=== PATIENT | female | born 1945 | race Caucasian/White ===

== ENCOUNTER 2019-02-20 11:40 | Inpatient (IN) | payer MEDICARE ==
[2019-02-20] MEDS ORDERED: MORPHINE SULFATE 2 MG/ML SYRINGE IVP STA (12:06)
--- NOTE | 2019-02-20 12:11 | ED ---
Lower Extremity Injury HPI <Dominick Fink - Last Filed: 02/20/19 12:31> - General Source: patient Mode of arrival: wheelchair Limitations: physical limitation <Katherine Groves - Last Filed: 02/20/19 15:06> - General Chief Complaint: Extremity Injury, Lower Stated Complaint: fall/hip pain Time Seen by Provider: 02/20/19 11:56 - History of Present Illness Initial Comments: 73-year-old female denies past medical history presents today for chief complaint of right hip pain. Patient fell while playing pickle ball at the [facility] around 945 this morning. Patient states she was just evaluated [facility] where she was diagnosed with hip fracture. She states they have imaging studies. Patient states she was sent over for admission, and should be scheduled for surgery tomorrow. I contacted [facility]. Patient was possibly a direct admission. Patient had actually come to the emergency department. Patient was only supposed to go to registration for direct admission. Patient admits to pain in the right hip denies any other area of pain or injury denies head injury or loss of consciousness. I will place initial medical evaluation for preoperative clearance for Dr. Leiva as instructed by SUSI Wood. (Katherine Groves) - Related Data Home Medications Medication Instructions Recorded Confirmed No Known Home Medications 02/20/19 02/20/19 Allergies Allergy/AdvReac Type Severity Reaction Status Date / Time adhesive tape Allergy torn skin Verified 02/20/19 11:56 codeine AdvReac Nausea & Verified 02/20/19 11:56 Vomiting Review of Systems ROS Other: All systems not noted in ROS Statement are negative. <AleksDominick - Last Filed: 02/20/19 12:31> ROS Other: All systems not noted in ROS Statement are negative. <Katherine Groves - Last Filed: 02/20/19 15:06> ROS Statement: Those systems with pertinent positive or pertinent negative responses have been documented in the HPI. Past Medical History Past Medical History: No Reported History Additional Past Medical History / Comment(s): FABBY CATARACTS History of Any Multi-Drug Resistant Organisms: None Reported Past Surgical History: Breast Surgery Additional Past Surgical History / Comment(s): BREAST REDUCTION, "FACE LIFT", rt cataract Past Anesthesia/Blood Transfusion Reactions: Postoperative Nausea & Vomiting (PONV) Past Psychological History: No Psychological Hx Reported Smoking Status: Never smoker Past Alcohol Use History: None Reported Past Drug Use History: None Reported - Past Family History Mother Family Medical History: No Reported History Father Family Medical History: No Reported History Additional Family Medical History / Comment(s): Father was healthy. <Katherine Groves - Last Filed: 02/20/19 15:06> General Exam Limitations: physical limitation <Katherine Groves - Last Filed: 02/20/19 15:06> - General Exam Comments Initial Comments: General: The patient is awake and alert, in no distress, and does not appear acutely ill. Eye: Pupils are equal, round and reactive to light, extra-ocular movements are intact. No nystagmus. There is normal conjunctiva bilaterally. No signs of icterus. Ears, nose, mouth and throat: There are moist mucous membranes and no oral lesions. No midline tenderness to patient of the neck. Patient able to fully range at the C-spine. Neck: The neck is supple, there is no tenderness or JVD. Cardiovascular: There is a regular rate and rhythm. No murmur, rub or gallop is appreciated. Respiratory: Lungs are clear to auscultation, respirations are non-labored, breath sounds are equal. No wheezes, stridor, rales, or rhonchi. Gastrointestinal: Soft, non-distended, non-tender abdomen without masses or organomegaly noted. There is no rebound or guarding present. Musculoskeletal: Patient is not tender to percussion of the upper extremity aashish nts. Normal ROM, no tenderness at the knee bilaterally hips and ankles bilaterally patient's unable to range at the right hip. There is shortening noted. Strength 5/5 distal to knees b/l. Sensation intact of the LE equal in comparison b/l. DP pulses equal bilaterally 2+. Neurological: A&O x 3. CN II-XII intact, There are no obvious motor or sensory deficits. Coordination appears grossly intact. Speech is normal. Skin: Skin is warm and dry and no rashes or lesions are noted. Psychiatric: Cooperative, appropriate mood & affect, normal judgment. (YaneliKatherine Viveros) Course <Dominick Fink - Last Filed: 02/20/19 12:31> Vital Signs 02/20/19 11:46 Temperature 98.2 F Pulse Rate 76 Respiratory 18 Rate Blood Pressure 121/51 O2 Sat by Pulse 98 Oximetry - Reevaluation(s) Reevaluation #1: 02/20/19 12:31 PA supervision: I proceeded [id number] evaluation the patient she did present from her orthopedic surgeon office for complaints of right hip pain she does have a right hip fracture. She will be admitted to Dr. Leiva's service I do agree with the assessment and plan. 02/20/19 12:31 (Dominick Fink) Medical Decision Making - Lab Data Result diagrams: 02/20/19 12:12 02/20/19 12:12 <Katherine Groves - Last Filed: 02/20/19 15:06> - Medical Decision Making 73-year-old feel presented for direct admission from right hip fracture. Patient actually presents emergency department, we are unaware of this until [facility] and spoke with physician library assistant [place]. She was evaluated the emergency department. Patient neurovascularly intact. Imaging studies were not repeated. Pt was transferred to the floor in stable condition. Initial medical studies initiated for medical clearance. Medicine on consult. (Katherine Groves) - Lab Data Lab Results 02/20/19 02/20/19 02/20/19 Range/Units 12:12 12:12 12:12 WBC 10.9 H (3.8-10.6) k/uL RBC 4.87 (3.80-5.40) m/uL Hgb 14.4 (11.4-16.0) gm/dL Hct 44.0 (34.0-46.0) % MCV 90.3 (80.0-100.0) fL MCH 29.5 (25.0-35.0) pg MCHC 32.6 (31.0-37.0) g/dL RDW 13.7 (11.5-15.5) % Plt Count 259 (150-450) k/uL Neutrophils % 84 % Lymphocytes % 10 % Monocytes % 4 % Eosinophils % 1 % Basophils % 0 % Neutrophils # 9.1 H (1.3-7.7) k/uL Lymphocytes # 1.1 (1.0-4.8) k/uL Monocytes # 0.5 (0-1.0) k/uL Eosinophils # 0.2 (0-0.7) k/uL Basophils # 0.0 (0-0.2) k/uL PT 9.6 (9.0-12.0) sec INR 0.9 (<1.2) APTT 20.4 L (22.0-30.0) sec Sodium 139 (137-145) mmol/L Potassium 4.3 (3.5-5.1) mmol/L Chloride 106 (98-107) mmol/L Carbon Dioxide 25 (22-30) mmol/L Anion Gap 8 mmol/L BUN 16 (7-17) mg/dL Creatinine 0.62 (0.52-1.04) mg/dL Est GFR (CKD-EPI)AfAm >90 (>60 ml/min/1.73 sqM) Est GFR (CKD-EPI)NonAf 89 (>60 ml/min/1.73 sqM) Glucose 91 (74-99) mg/dL Calcium 10.0 (8.4-10.2) mg/dL Total Bilirubin 1.2 (0.2-1.3) mg/dL AST 29 (14-36) U/L ALT 31 (9-52) U/L Alkaline Phosphatase 74 (38-126) U/L NT-Pro-B Natriuret Pep pg/mL Total Protein 7.4 (6.3-8.2) g/dL Albumin 4.5 (3.5-5.0) g/dL 02/20/19 Range/Units 12:12 WBC (3.8-10.6) k/uL RBC (3.80-5.40) m/uL Hgb (11.4-16.0) gm/dL Hct (34.0-46.0) % MCV (80.0-100.0) fL MCH (25.0-35.0) pg MCHC (31.0-37.0) g/dL RDW (11.5-15.5) % Plt Count (150-450) k/uL Neutrophils % % Lymphocytes % % Monocytes % % Eosinophils % % Basophils % % Neutrophils # (1.3-7.7) k/uL Lymphocytes # (1.0-4.8) k/uL Monocytes # (0-1.0) k/uL Eosinophils # (0-0.7) k/uL Basophils # (0-0.2) k/uL PT (9.0-12.0) sec INR (<1.2) APTT (22.0-30.0) sec Sodium (137-145) mmol/L Potassium (3.5-5.1) mmol/L Chloride (98-107) mmol/L Carbon Dioxide (22-30) mmol/L Anion Gap mmol/L BUN (7-17) mg/dL Creatinine (0.52-1.04) mg/dL Est GFR (CKD-EPI)AfAm (>60 ml/min/1.73 sqM) Est GFR (CKD-EPI)NonAf (>60 ml/min/1.73 sqM) Glucose (74-99) mg/dL Calcium (8.4-10.2) mg/dL Total Bilirubin (0.2-1.3) mg/dL AST (14-36) U/L ALT (9-52) U/L Alkaline Phosphatase (38-126) U/L NT-Pro-B Natriuret Pep 203 pg/mL Total Protein (6.3-8.2) g/dL Albumin (3.5-5.0) g/dL Disposition <Dominick Fink - Last Filed: 02/20/19 12:31> Is patient prescribed a controlled substance at d/c from ED?: No Time of Disposition: 12:16 Decision to Admit Reason: Admit from EC Decision Date: 02/20/19 Decision Time: 12:16 <Katherine Groves - Last Filed: 02/20/19 15:06> Clinical Impression: Fracture of right hip Disposition: ADMITTED IP TO THIS [facility] Condition: Stable
[2019-02-20] MEDS ORDERED: NALOXONE 0.4 MG/ML 1 ML VIAL IV PRN (12:13)
[2019-02-20 12:31] LABS: Basophils % (A) 0 %; Eosinophils # (A) 0.2 k/uL (0-0.7); Eosinophils % (A) 1 %; HGB 14.4 gm/dL (11.4-16.0); Lymphocytes # (A) 1.1 k/uL (1.0-4.8); Lymphocytes % (A) 10 %; MCH 29.5 pg (25.0-35.0); MCHC 32.6 g/dL (31.0-37.0); MCV 90.3 fL (80.0-100.0); Mean Platelet Volume 6.8; Monocytes # (A) 0.5 k/uL (0-1.0); Monocytes % (A) 4 %; Neutrophils # (A) 9.1 k/uL (1.3-7.7); Neutrophils % (A) 84 %; Platelet Count 259 k/uL (150-450); RBC 4.87 m/uL (3.80-5.40); RDW 13.7 % (11.5-15.5); WBC 10.9 k/uL (3.8-10.6)
[2019-02-20 12:37] LABS: ALT 31 U/L (9-52); AST 29 U/L (14-36); Albumin 4.5 g/dL (3.5-5.0); Alkaline Phosphatase 74 U/L (38-126); Anion Gap 8 mmol/L; Blood Urea Nitrogen 16 mg/dL (7-17); Carbon Dioxide 25 mmol/L (22-30); Chloride 106 mmol/L (98-107); Glucose 91 mg/dL (74-99); Potassium 4.3 mmol/L (3.5-5.1); Sodium 139 mmol/L (137-145); Total Bilirubin 1.2 mg/dL (0.2-1.3); Total Protein 7.4 g/dL (6.3-8.2)
[2019-02-20 12:42] LABS: INR 0.9 (<1.2); Prothrombin Time 9.6 sec (9.0-12.0)
[2019-02-20 12:46] LABS: Partial Thromboplastin Time 20.4 sec (22.0-30.0)
[2019-02-20] MEDS ORDERED: MAGNESIUM HYDROXIDE 2,400 MG/10 ML CUP PO PRN (12:55)
[2019-02-20] MEDS ORDERED: HYDROcodone/APAP 10-325MG 1 EACH TAB PO PRN ×2 (12:55)
[2019-02-20] MEDS ORDERED: HYDROcodone/APAP 7.5-325MG 1 EACH TAB PO PRN ×2 (12:55)
[2019-02-20] MEDS ORDERED: HYDROcodone/APAP 5-325MG 1 EACH TAB PO PRN (12:55)
[2019-02-20] MEDS ORDERED: ACETAMINOPHEN TAB 325 MG TAB PO PRN (12:55)
[2019-02-20] MEDS ORDERED: traMADol 50 MG TAB PO PRN (12:55)
[2019-02-20] MEDS ORDERED: DIAZEPAM 5 MG TAB PO PRN (12:55)
[2019-02-20] MEDS ORDERED: HYDROmorphone 0.5 MG/0.5 ML SYRINGE IVP PRN ×3 (12:55)
--- NOTE | 2019-02-20 13:14 | P.HPOR ---
History of Present Illness H&P Date: 02/20/19 Chief Complaint: Right Hip Fracture Patient is a 73 year old female. Radha Butterfield" presented to our office for evaluation of her right hip pain. She sustained injury to her hip when she fell while playing pickle ball today (02/20/19). Patient is well known to Dr. Leiva and her brought her straight to the office following the injury as she has been unable to bear any weight on the right leg. She is brought into the office by wheel chair today. Patient states on her intake form that pain level is at 9/10. She continues to have pain and weakness. She describes her pain as sharp. Patient states her symptoms are worse with walking, running, lifting, twisting, bending, stairs, exercise, squatting and kneeling. Other activities that make symptoms worse include: cannot move leg. Patient denies being off work due to her symptoms. Review of Systems All systems: negative Constitutional: Denies chills, Denies fever Eyes: denies blurred vision, denies pain Ears, nose, mouth and throat: Denies headache, Denies sore throat Cardiovascular: Denies chest pain, Denies shortness of breath Respiratory: Denies cough Gastrointestinal: Denies abdominal pain, Denies diarrhea, Denies nausea, Denies vomiting Genitourinary: Denies dysuria, Denies hematuria Musculoskeletal: Denies myalgias Integumentary: Denies pruritus, Denies rash Neurological: Denies numbness, Denies weakness Psychiatric: Denies anxiety, Denies depression Endocrine: Denies fatigue, Denies weight change Past Medical History Past Medical History: Hyperlipidemia, Osteoarthritis (OA) Additional Past Medical History / Comment(s): Arthritis in fingers, L leg ACL te ar-wears a brace, diverticulosis, benign colon polyp. History of Any Multi-Drug Resistant Organisms: None Reported Past Surgical History: Breast Surgery, Orthopedic Surgery Additional Past Surgical History / Comment(s): BREAST REDUCTION, "FACE LIFT", bilateral cataract removals with lens implants, ACL repair R leg, colonoscopy with benign polypectomy. Past Anesthesia/Blood Transfusion Reactions: Postoperative Nausea & Vomiting (PONV) Additional Past Anesthesia/Blood Transfusion Reaction / Comment(s): Pt received blood after delivery. Past Psychological History: No Psychological Hx Reported Additional Psychological History / Comment(s): Pt resides with her spouse. She is independent. Smoking Status: Never smoker Past Alcohol Use History: None Reported Past Drug Use History: None Reported - Past Family History Mother Family Medical History: No Reported History Additional Family Medical History / Comment(s): Osteoporosis. Father Family Medical History: No Reported History Additional Family Medical History / Comment(s): Father was healthy. Medications and Allergies Home Medications Medication Instructions Recorded Confirmed Type No Known Home Medications 02/20/19 02/20/19 History Allergies Allergy/AdvReac Type Severity Reaction Status Date / Time adhesive tape Allergy torn skin Verified 02/20/19 11:56 codeine AdvReac Nausea & Verified 02/20/19 11:56 Vomiting Physical Examination General Exam: Constitutional: Patient is adequately groomed with no evidence of malnutrition. Skin: There are no rashes, ulcerations or lesions in the regions examined. Mental Status: Patient is oriented to time, place and person. Mood and affect are appropriate. Respiratory: No labored effort. No accessory muscle use. HEENT: Normal cephalic atraumatic. Extraocular movements are intact. On exam, skin is intact. Patient has hip pain with minimal range of motion. ROM of hip not tested due to fracture. Neurovascular status is intact. Circulatory status is intact.Calf is soft an nontender Results X-rays of the right hip and pelvis taken in the office show a valgus impacted femoral neck fracture. No osseous lesions. - Labs Labs: Abnormal Lab Results - Last 24 Hours (Table) 02/20/19 02/20/19 Range/Units 12:12 12:12 WBC 10.9 H (3.8-10.6) k/uL Neutrophils # 9.1 H (1.3-7.7) k/uL APTT 20.4 L (22.0-30.0) sec H & H 02/20/19 Range/Units 12:12 Hgb 14.4 (11.4-16.0) gm/dL Hct 44.0 (34.0-46.0) % Coagulation 02/20/19 Range/Units 12:12 INR 0.9 (<1.2) Result Diagrams: 02/20/19 12:12 02/20/19 12:12 Assessment and Plan (1) Fracture of right hip Narrative/Plan: Patient is being directed admitted from the office today. She is not to bear any weight on the right hip. We will plan on doing surgery tomorrow afternoon including percutaneous fixation of right hip fracture. She will be NPO after midnight. Medical consults for clearance ordered. Procedure and consent have been ordered. Current Visit: Yes Status: Acute Priority: Medium Code(s): S72.001A - F RACTURE OF UNSP PART OF NECK OF RIGHT FEMUR, INIT SNOMED Code(s): 814623054 Time with Patient: Less than 30
[2019-02-20] MEDS: MORPHINE SULFATE 2 MG/ML SYRINGE IV PRN ×2 (15:38→20:41)
[2019-02-20] MEDS: SODIUM CHLORIDE 0.9% 1,000 ML IV SCH (15:38)
--- NOTE | 2019-02-20 16:15 | XR ---
EXAMINATION TYPE: XR chest 1V DATE OF EXAM: 02/20/2019 COMPARISON: NONE HISTORY: Preop TECHNIQUE: Single frontal view of the chest is obtained. FINDINGS: No pneumothorax.. Diffuse osteopenia. No overt failure. There is subsegmental consolidatio n at the right lung base with small effusion. IMPRESSION: Right subsegmental basilar infiltrate with tiny effusion.
[2019-02-20] MEDS: SENNOSIDES-DOCUSATE SODIUM 1 EACH TAB PO SCH (20:22)
[2019-02-20] MEDS: LACTATED RINGERS 1,000 ML IV SCH (20:42)
[2019-02-20 21:42] LABS: Hemoglobin A1C 5.4 % (4.0-6.0)
--- NOTE | 2019-02-20 21:43 | P.CONS ---
History of Present Illness - Reason for Consult Consult date: 02/20/19 Requesting physician: Doug Leiva - Chief Complaint Right hip fracture requiring surgical intervention - History of Present Illness Is a pleasant 73-year-old lady patient of Dr. Pelletier. She has underlying history of osteoarthritis hyperlipidemia, DJD diverticulosis, admitted to the hospital after initial evaluation by Dr. Leiva at this office, patient sustained a fall 1 and playing pickle ball 02/20/2019, unable to bear weight on the right leg, pain is 9 out of 10, aggravated by movement. X-rays in the office shows valgus impacted femoral neck fracture right hip, Patient cannot bear weight, patient denies any chest pain shortness of breath palpitations, no fever no chills, no new rashes, no new medications from other physicians, no nausea vomiting diarrhea. Consult were made from orthopedics with plans for surgical intervention to include percutaneous fixation of the right hip, on 02/21/2019. she denies any prior history of CHF, no prior ID, no prior CVA history, creatinine of 0.6, no diabetes. Clearance performed today with an RCRI, score of 0, Mace surgical risk of 1-5%, ASA anesthesia risk class I controlled hypertension, EKG will be ordered, INR is 0.9, preop evaluaion with a BNP. , ekg reviewed, nsr no pathological q waves. Review of Systems Constitutional: Reports as per HPI, Denies anorexia, Denies chills, Denies chronic headaches, Denies chronic pain, Denies daytime sleepiness, Denies fatigue, Denies fever, Denies lethargy, Denies malaise, Denies night sweats, Denies poor appetite, Denies sweats, Denies weakness, Denies weight gain, Denies weight loss Ears, nose, mouth and throat: Reports as per HPI, Denies ant. neck pain, Denies bleeding gums, Denies dental pain, Denies dysphagia, Denies epistaxis, Denies headache, Denies hoarseness, Denies mouth pain, Denies nasal congestion, Denies nasal discharge, Denies neck fullness/pressure, Denies neck lump, Denies nose pain, Denies odynophagia, Denies post-nasal drip, Denies sinus pain, Denies sinus pressure, Denies swelling in mouth, Denies swelling in throat, Denies sore throat, Denies vertigo, Denies voice changes Cardiovascular: Reports as per HPI, Denies chest pain, Denies claudication, Denies decreased exercise tolerance, Denies dyspnea on exertion, Denies edema, Denies high blood pressure, Denies irregular heart beat, Denies leg edema, Denies lightheadedness, Denies orthopnea, Denies palpitations, Denies paroxysmal nocturnal dyspnea, Denies phlebitis, Denies rapid heart beat, Denies shortness of breath, Denies syncope Respiratory: Reports as per HPI, Denies congestion, Denies cough, Denies cough with sputum, Denies dyspnea, Denies excessive sputum, Denies hemoptysis, Denies home oxygen, Denies pain, Denies pain on inspiration, Denies pleurisy, Denies respiratory infections, Denies sleep apnea, Denies snoring, Denies wheezing Gastrointestinal: Reports as per HPI, Denies abdominal pain, Denies belching, Denies bloating, Denies BRBPR, Denies change in bowel habits, Denies coffee ground emesis, Denies constipation, Denies diarrhea, Denies dyspepsia, Denies early satiety, Denies excessive gas, Denies heartburn, Denies hematemesis, Denies hematochezia, Denies indigestion, Denies jaundice, Denies lactose intolerance, Denies loss of appetite, Denies melena, Denies nausea, Denies vomiting Genitourinary: Reports as per HPI Menstruation: Reports as per HPI, Reports postmenopausal Musculoskeletal: Reports as per HPI, Reports gait dysfunction, Reports limitation of motion, Denies arm numbness/tingling, Denies atrophy, Denies fractures, Denies frequent falls, Denies hot joints, Denies leg numbness/tingling, Denies loss of height, Denies low back pain, Denies morning stiffness, Denies muscle cramps, Denies muscle weakness, Denies myalgias, Denies neck pain, Denies neck stiffness, Denies prior amputations, Denies redness of joints, Denies shooting arm pain, Denies shooting leg pain Integumentary: Denies as per HPI, Denies acne, Denies boils, Denies brittle nails, Denies change in hair/nails, Denies color changes, Denies darkening of skin, Denies depigmentation, Denies dryness, Denies foot/leg ulcers, Denies gr owths, Denies hirsutism, Denies lesions, Denies onychomycosis, Denies pruritus, Denies rash, Denies sores, Denies striae, Denies unusual bruising, Denies wounds Neurological: Reports as per HPI, Denies aphasia, Denies ataxia, Denies balance difficulties, Denies burning pain, Denies change in mentation, Denies change in smell/taste, Denies change in speech, Denies confusion, Denies convulsions, Denies double vision, Denies gait dysfunction, Denies head injury, Denies head aches, Denies hearing difficulties, Denies lack of coordination, Denies loss of vision, Denies memory loss, Denies migraines, Denies motor disturbance, Denies numbness, Denies paralysis, Denies paresthesias, Denies seizures, Denies sensory deficit, Denies spasticity, Denies syncope, Denies tic, Denies tingling, Denies transient paralysis, Denies tremors, Denies vertigo, Denies weakness, Denies vis ual changes Psychiatric: Reports as per HPI, Reports sleep disturbances, Denies anhedonia, Denies anxiety, Denies anxiety attacks, Denies change in appetite, Denies change in libido, Denies change in sleep habits, Denies confusion, Denies depression, Denies difficulty concentrating, Denies disorientation, Denies hallucinations, Denies hopelessness, Denies hypersomnia, Denies insomnia, Denies irritability, Denies memory loss, Denies mood swings, Denies paranoia, Denies sa dness/tearfulness, Denies suicidal ideation Endocrine: Reports as per HPI Hematologic/Lymphatic: Reports as per HPI Allergic/Immunologic: Reports as per HPI Past Medical History Past Medical History: Hyperlipidemia, Osteoarthritis (OA) Additional Past Medical History / Comment(s): Arthritis in fingers, L leg ACL tear-wears a brace, diverticulosis, benign colon polyp. History of Any Multi-Drug Resistant Organisms: None Reported Past Surgical History: Breast Surgery, Orthopedic Surgery Additional Past Surgical History / Comment(s): BREAST REDUCTION, "FACE LIFT", bilateral cataract removals with lens implants, ACL repair R leg, colonoscopy with benign polypectomy. Past Anesthesia/Blood Transfusion Reactions: Postoperative Nausea & Vomiting (PONV) Additional Past Anesthesia/Blood Transfusion Reaction / Comm: Pt received blood after delivery. Past Psychological History: No Psychological Hx Reported Additional Psychological History / Comment(s): Pt resides with her spouse. She is independent. Smoking Status: Never smoker Past Alcohol Use History: None Reported Past Drug Use History: None Reported - Past Family History Mother Family Medical History: No Reported History Additional Family Medical History / Comment(s): Osteoporosis. Father Family Medical History: No Reported History Additional Family Medical History / Comment(s): Father was healthy. Medications and Allergies Home Medications Medication Instructions Recorded Confirmed Type No Known Home Medications 02/20/19 02/20/19 History Allergies Allergy/AdvReac Type Severity Reaction Status Date / Time adhesive tape Allergy torn skin Verified 02/20/19 11:56 codeine AdvReac Nausea & Verified 02/20/19 11:56 Vomiting Physical Exam Vitals: Vital Signs Temp Pulse Resp BP Pulse Ox 02/20/19 11:46 98.2 F 76 18 121/51 98 Intake and Output 02/19/19 02/20/19 02/20/19 22:59 06:59 14:59 Other: Weight 50.802 kg - Constitutional General appearance: cooperative, no acute distress - EENT Eyes: anicteric sclerae, PERRLA, dentition normal, normal appearance ENT: hearing grossly normal, NA/AT, normal oropharynx - Neck Neck: normal ROM - Respiratory Respiratory: bilateral: CTA, negative: diminished, dullness, rales, rhonchi, whe ezing, prolonged expiration - Cardiovascular Rhythm: regular Heart sounds: normal: S1, S2 Abnormal Heart Sounds: no systolic murmur, no diastolic murmur, no rub, no S3 Gallop, no S4 Gallop, no click, no other - Gastrointestinal General gastrointestinal: normal bowel sounds, soft - Integumentary Integumentary: normal, normal turgor - Neurologic Neurologic: CNII-XII intact - Musculoskeletal Musculoskeletal: strength equal bilaterally - Psychiatric Psychiatric: A&O x's 3, appropriate affect, intact judgment & insight Results CBC & Chem 7: 02/20/19 12:12 02/20/19 12:12 Labs: Abnormal Lab Results - Last 24 Hours (Table) 02/20/19 02/20/19 Range/Units 12:12 12:12 WBC 10.9 H (3.8-10.6) k/uL Neutrophils # 9.1 H (1.3-7.7) k/uL APTT 20.4 L (22.0-30.0) sec Laboratory Results WBC 10.9 k/uL (3.8-10.6) H 02/20/19 12:12 RBC 4.87 m/uL (3.80-5.40) 02/20/19 12:12 Hgb 14.4 gm/dL (11.4-16.0) 02/20/19 12:12 Hct 44.0 % (34.0-46.0) 02/20/19 12:12 MCV 90.3 fL (80.0-100.0) 02/20/19 12:12 MCH 29.5 pg (25.0-35.0) 02/20/19 12:12 MCHC 32.6 g/dL (31.0-37.0) 02/20/19 12:12 RDW 13.7 % (11.5-15.5) 02/20/19 12:12 Plt Count 259 k/uL (150-450) 02/20/19 12:12 Neutrophils % 84 % 02/20/19 12:12 Lymphocytes % 10 % 02/20/19 12:12 Monocytes % 4 % 02/20/19 12:12 Eosinophils % 1 % 02/20/19 12:12 Basophils % 0 % 02/20/19 12:12 Neutrophils # 9.1 k/uL (1.3-7.7) H 02/20/19 12:12 Lymphocytes # 1.1 k/uL (1.0-4.8) 02/20/19 12:12 Monocytes # 0.5 k/uL (0-1.0) 02/20/19 12:12 Eosinophils # 0.2 k/uL (0-0.7) 02/20/19 12:12 Basophils # 0.0 k/uL (0-0.2) 02/20/19 12:12 PT 9.6 sec (9.0-12.0) 02/20/19 12:12 INR 0.9 (<1.2) 02/20/19 12:12 APTT 20.4 sec (22.0-30.0) L 02/20/19 12:12 Sodium 139 mmol/L (137-145) 02/20/19 12:12 Potassium 4.3 mmol/L (3.5-5.1) 02/20/19 12:12 Chloride 106 mmol/L (98-107) 02/20/19 12:12 Carbon Dioxide 25 mmol/L (22-30) 02/20/19 12:12 Anion Gap 8 mmol/L 02/20/19 12:12 BUN 16 mg/dL (7-17) 02/20/19 12:12 Creatinine 0.62 mg/dL (0.52-1.04) 02/20/19 12:12 Est GFR (CKD-EPI)AfAm >90 (>60 ml/min/1.73 sqM) 02/20/19 12:12 Est GFR (CKD-EPI)NonAf 89 (>60 ml/min/1.73 sqM) 02/20/19 12:12 Glucose 91 mg/dL (74-99) 02/20/19 12:12 Calcium 10.0 mg/dL (8.4-10.2) 02/20/19 12:12 Total Bilirubin 1.2 mg/dL (0.2-1.3) 02/20/19 12:12 AST 29 U/L (14-36) 02/20/19 12:12 ALT 31 U/L (9-52) 02/20/19 12:12 Alkaline Phosphatase 74 U/L (38-126) 02/20/19 12:12 Total Protein 7.4 g/dL (6.3-8.2) 02/20/19 12:12 Albumin 4.5 g/dL (3.5-5.0) 02/20/19 12:12 Assessment and Plan Plan: 1. Traumatic fracture involving the right femur, requiring IM nailing by Dr. Leiva on February 21 2019, RCRI score of 0, ASA anesthesia class 1, Mace risk score of 1-5%, preoperatively cleared based on the current examination, patient would need an EKG, BNP baseline, obtain urinalysis secondary leukocytosis, surgery is anticipated 02/21/2019 weightbearing status per surgery, start on incentive spirometry, GI prophylaxis and DVT prophylaxis 2. Chronic generalized arthritis him a patient's physically active prior to admission, 3. DVT prophylaxis would be aspirin twice a day post surgery 3. Hyperlipidemia not on statin 4. Age-related osteoporosis with current pathological fracture, patient is not on any medication prior to admission, we'll going to start her on vitamin D, bone density needs to be evaluated post discharge by PCP if not done 5. GI prophylaxis Pepcid 6. Leukocytosis possibly related to phase reactant, monitor for urinary symptomatology, urinalysis obtained with reflex Thank you Dr. Leiva in allowing us to precipitate the care of your patient. We'll going to follow her with you Graciela this current hospital stay, recommendations to her treatment will be made based on her clinical progress
[2019-02-20] MEDS: TEMAZEPAM 15 MG CAP PO PRN (22:14)
[2019-02-21] MEDS: MORPHINE SULFATE 2 MG/ML SYRINGE IV PRN ×3 (03:57→18:25)
[2019-02-21 04:13] LABS: Appearance,Urine Clear (Clear); Bilirubin,Urine Negative (Negative); Blood,Urine Negative (Negative); Color,Urine Yellow; Glucose,Urine (UA) Negative (Negative); Ketones,Urine 2+ (Negative); Leukocyte Esterase,Urine Moderate (Negative); Mucus,Urine Occasional /hpf; Nitrite,Urine Negative (Negative); Protein,Urine Trace (Negative); RBC,Urine 1 /hpf (0-5); Specific Gravity,Urine 1.025 (1.001-1.035); Squamous Epithelial Cell,Urine 1 /hpf (0-4); Urobilinogen,Urine <2.0 mg/dL (<2.0)
[2019-02-21] MEDS: ONDANSETRON 4 MG/2 ML VIAL IVP PRN (07:45)
[2019-02-21 08:09] LABS: Basophils % (A) 0 %; Eosinophils # (A) 0.1 k/uL (0-0.7); Eosinophils % (A) 1 %; HCT 39.2 % (34.0-46.0); HGB 12.6 gm/dL (11.4-16.0); Lymphocytes # (A) 1.2 k/uL (1.0-4.8); Lymphocytes % (A) 14 %; MCH 29.3 pg (25.0-35.0); MCHC 32.1 g/dL (31.0-37.0); MCV 91.4 fL (80.0-100.0); Mean Platelet Volume 6.7; Monocytes # (A) 0.6 k/uL (0-1.0); Monocytes % (A) 7 %; Neutrophils # (A) 6.2 k/uL (1.3-7.7); Neutrophils % (A) 76 %; Platelet Count 214 k/uL (150-450); RBC 4.29 m/uL (3.80-5.40); RDW 13.9 % (11.5-15.5); WBC 8.2 k/uL (3.8-10.6)
[2019-02-21 08:23] LABS: Anion Gap 7 mmol/L; Blood Urea Nitrogen 13 mg/dL (7-17); Calcium 9.2 mg/dL (8.4-10.2); Carbon Dioxide 23 mmol/L (22-30); Chloride 107 mmol/L (98-107); Glucose 97 mg/dL (74-99); Potassium 4.2 mmol/L (3.5-5.1); Sodium 137 mmol/L (137-145)
[2019-02-21] MEDS ORDERED: ceFAZolin (PMX-bag) 2,000 MG in DEXTROSE/WATER 1 50ML.BAG IVPB SCH (11:30)
[2019-02-21] MEDS ORDERED: ceFAZolin IN SWFI 2 GM/20 ML SYRINGE IVP SCH (11:30)
[2019-02-21] MEDS ORDERED: IV FLUID CONTINUATION 1,000 ML IV ONE (14:53)
--- NOTE | 2019-02-21 15:29 | P.PN ---
Subjective Progress Note Date: 02/21/19 Is a pleasant 73-year-old lady patient of Dr. Pelletier. She has underlying history of osteoarthritis hyperlipidemia, DJD diverticulosis, admitted to the hospital after initial evaluation by Dr. Leiva at this office, patient sustained a fall 1 and playing pickle ball 02/20/2019, unable to bear weight on the right leg, pain is 9 out of 10, aggravated by movement. X-rays in the office shows valgus impacted femoral neck fracture right hip, Patient cannot bear weight, patient denies any chest pain shortness of breath palpitations, no fever no chills, no new rashes, no new medications from other physicians, no nausea vomiting diarrhea. Consult were made from orthopedics with plans for surgical interven tion to include percutaneous fixation of the right hip, on 02/21/2019. she denies any prior history of CHF, no prior MD, no prior CVA history, creatinine of 0.6, no diabetes. Clearance performed today with an RCRI, score of 0, Mace surgical risk of 1-5%, ASA anesthesia risk class I controlled hype rtension, EKG will be ordered, INR is 0.9, preop evaluaion with a BNP. , ekg reviewed, nsr no pathological q waves. 02/21: Chest x-ray reveals right subsegmental basilar infiltrate with tiny effusions. Patient is scheduled for percutaneous fixation of the right hip fracture this afternoon. Patient is cleared for medicine for surgical intervention. She denies having any chest pain, shortness of breath. No nausea or vomiting. She has been afebrile, blood pressure 123/59, pulse ox 99% on room air, pulse rate 75. White count is normal at 8.2, hemoglobin 12.6, creatinine 0.55. TSH 1.4-0. Urinalysis showed moderate leukoesterase, nitrate negative, WBC 16. Review Of Systems: Constitutional: No fever, no chills, no night sweats. No weight change. No weakness, fatigue or lethargy. No daytime sleepiness. EENT: No headache. No blurred vision or double vision, no loss of vision. No loss of Hearing, no ringing in the ears, no dizziness. No nasal drainage or congestion. No epistaxis. No sore throat. Lungs: No shortness of breath, cough, no sputum production. No wheezing. Cardiovascular: No chest pain, no lower extremity edema. No palpitations. No paroxysmal nocturnal dyspnea. No orthopnea. No lightheadedness or dizziness. No syncopal episodes. Abdominal: No abdominal pain. No nausea, vomiting. No diarrhea. No constipation. No bloody or tarry stools. Genitourinary: No dysuria, increased frequency, urgency. No urinary retention. Musculoskeletal: No myalgias. No muscle weakness, no gait dysfunction, no frequent falls. No back pain. No neck pain. Reports right hip pain. Integumentary: No wounds, no lesions. No rash or pruritus. No unusual bruising. No change in hair or nails. Neurologic: No aphasia. No facial droop. No change in mentation. No head injury. No headache. No paralysis. No paresthesia. Psychiatric: No depression. No anxiety. No mood swings. Endocrine: No abnormal blood sugars. No weight change. No excessive sweating or thirst. Objective - Vital Signs Vital signs: Vital Signs Temp 98.3 F 02/21/19 07:27 Pulse 83 02/21/19 07:27 Resp 17 02/21/19 02:05 BP 118/62 02/21/19 07:27 Pulse Ox 96 02/21/19 07:27 Intake & Output 02/20/19 02/21/19 02/21/19 18:59 06:59 18:59 Intake Total 0 620 Balance 0 620 Weight 50.802 kg Intake: Intake, IV Titration 0 80 Amount Lactated Ringers 1,000 ml 60 @ 20 mls/hr IV .Q24H [facility]K Rx#:[id number] Sodium Chloride 0.9% 1, 0 20 000 ml @ 20 mls/hr IV . Q24H MIK Rx#:[id number] Oral 540 Other: Voiding Method Bedpan Bedpan # Voids 50 1 - Exam General appearance: cooperative, no acute distress, patient resting comfortably in bed - EENT Eyes: anicteric sclerae, PERRLA, dentition normal, normal appearance ENT: hearing grossly normal, NA/AT, normal oropharynx - Neck Neck: normal ROM - Respiratory Respiratory: bilateral: CTA, negative: diminished, dullness, rales, rhonchi, wheezing, prolonged expiration - Cardiovascular Rhythm: regular Heart sounds: normal: S1, S2 Abnormal Heart Sounds: no systolic murmur, no diastolic murmur, no rub, no S3 Gallop, no S4 Gallop, no click, no other - Gastrointestinal General gastrointestinal: normal bowel sounds, soft - Integumentary Integumentary: normal, normal turgor - Neurologic Neurologic: CNII-XII intact - Musculoskeletal Musculoskeletal: strength equal bilaterally - Psychiatric Psychiatric: A&O x's 3, appropriate affect, intact judgment & insight - Labs CBC & Chem 7: 02/21/19 07:34 02/21/19 07:34 Labs: Abnormal Lab Results - Last 24 Hours (Table) 02/20/19 02/20/19 02/20/19 Range/Units 12:12 12:12 19:40 WBC 10.9 H (3.8-10.6) k/uL Neutrophils # 9.1 H (1.3-7.7) k/uL APTT 20.4 L (22.0-30.0) sec Urine Protein Trace H (Negative) Urine Ketones 2+ H (Negative) Ur Leukocyte Esterase Moderate H (Negative) Urine WBC 16 H (0-5) /hpf Urine Mucus Occasional H (None) /hpf Assessment and Plan Plan: 1. Traumatic fracture involving the right femur, requiring IM nailing by Dr. Leiva on February 21 2019, RCRI score of 0, ASA anesthesia class 1, Mace risk score of 1-5%, preoperatively cleared based on the current examination, patient would need an EKG, BNP baseline, obtain urinalysis secondary leukocytosis, surgery is anticipated 02/21/2019 weightbearing status per surgery, start on incentive spirometry, GI prophylaxis and DVT prophylaxis 2. Chronic generalized arthritis him a patient's physically active prior to admission, 3. DVT prophylaxis would be aspirin twice a day post surgery 3. Hyperlipidemia not on statin 4. Age-related osteoporosis with current pathological fracture, patient is not on any medication prior to admission, we'll going to start her on vitamin D, bone density needs to be evaluated post discharge by PCP if not done 5. GI prophylaxis Pepcid 6. Leukocytosis possibly related to phase reactant, monitor for urinary symptomatology, urinalysis obtained with reflex Discharge plan: Home or subacute rehab Impression and plan of care have been directed as dictated by the signing physician. Rossy Crum nurse practitioner acting as scribe for signing physician.
[2019-02-21] MEDS ORDERED: PROPOFOL 10 MG/ML 20 ML VIAL IV ONE (15:58)
[2019-02-21] MEDS ORDERED: MIDAZOLAM 2 MG/2 ML VIAL ONE (15:58)
[2019-02-21] MEDS ORDERED: fentaNYL (PF) 50 MCG/ML 2 ML AMP ONE (15:58)
[2019-02-21] MEDS ORDERED: ceFAZolin 1,000 MG in SODIUM CHLORIDE 0.9% 1,000 ML IRRIGATION ONE (16:33)
[2019-02-21] MEDS: MULTIVITAMINS, THERA 1 EACH TAB PO SCH (17:39)
[2019-02-21] MEDS: SODIUM CHLORIDE 0.9% 1,000 ML IV SCH (17:40)
--- NOTE | 2019-02-21 17:56 | XR ---
EXAMINATION TYPE: XR Hip Limited RT DATE OF EXAM: 02/21/2019 COMPARISON: 07/18/2014 HISTORY: Postop hip surgery TECHNIQUE: Single view FINDINGS: There are 3 screws fixing an apparent subcapital fracture of the right femur. Hip joint spa ce is normal. There is no dislocation. Acetabulum is intact. IMPRESSION: No complicating process seen. I have no recent exam to compare.
[2019-02-21] MEDS: LACTATED RINGERS 1,000 ML IV SCH (20:32)
[2019-02-21] MEDS: ASPIRIN 325 MG TAB PO SCH (21:35)
[2019-02-21] MEDS: SENNOSIDES-DOCUSATE SODIUM 1 EACH TAB PO SCH (21:35)
[2019-02-22] MEDS: ceFAZolin IN SWFI 2 GM/20 ML SYRINGE IVP SCH ×3 (00:08→16:19)
[2019-02-22] MEDS: MORPHINE SULFATE 2 MG/ML SYRINGE IV PRN ×2 (00:18→07:17)
[2019-02-22] MEDS: HYDROcodone/APAP 5-325MG 1 EACH TAB PO PRN (08:08)
[2019-02-22] MEDS: ASPIRIN 325 MG TAB PO SCH ×2 (08:08→21:14)
[2019-02-22] MEDS: MULTIVITAMINS, THERA 1 EACH TAB PO SCH (08:08)
[2019-02-22 08:21] LABS: Basophils % (A) 0 %; Eosinophils # (A) 0.2 k/uL (0-0.7); Eosinophils % (A) 2 %; HCT 38.5 % (34.0-46.0); Lymphocytes # (A) 1.1 k/uL (1.0-4.8); Lymphocytes % (A) 14 %; MCH 29.7 pg (25.0-35.0); MCHC 31.2 g/dL (31.0-37.0); MCV 95.2 fL (80.0-100.0); Mean Platelet Volume 7.1; Monocytes # (A) 0.5 k/uL (0-1.0); Monocytes % (A) 6 %; Neutrophils # (A) 6.2 k/uL (1.3-7.7); Neutrophils % (A) 77 %; Platelet Count 209 k/uL (150-450); RBC 4.04 m/uL (3.80-5.40); RDW 13.8 % (11.5-15.5); WBC 8.1 k/uL (3.8-10.6)
--- NOTE | 2019-02-22 09:27 | P.PN ---
Subjective Progress Note Date: 02/22/19 Principal diagnosis: Right hip fracture Patient is seen at bedside this morning. She is postop day #1 from right hip percutaneous pinning for right hip fracture. She has pain at the surgical site as expected but denies any new complaints. She denies numbness, tingling or calf pain. Review of systems is negative for fever, chills, chest pain, shortness of breath or other Objective - Vital Signs Vital signs: Vital Signs Temp 98.5 F 02/22/19 07:00 Pulse 70 02/22/19 07:00 Resp 16 02/22/19 07:00 BP 128/72 02/22/19 07:00 Pulse Ox 96 02/22/19 07:00 Intake & Output 02/21/19 02/22/19 02/22/19 18:59 06:59 18:59 Intake Total 451 1090 Output Total 25 Balance 426 1090 Intake: IV 451 Intake, IV Titration 550 Amount Lactated Ringers 1,000 ml 550 @ 20 mls/hr IV .Q24H [facility] Rx#:[id number] Oral 540 Output: Estimated Blood Loss 25 Other: Voiding Method Bedpan Bedpan # Voids 1 - Exam Inspection reveals a benign surgical wound. There is no active bleeding or belkis inage. Neurovascular status is intact throughout the lower extremity with motor and sensation fully intact. Calf is soft and nontender. 2+ dorsalis pedis pulse and less than 2 second cap refill is present. - Constitutional General appearance: Present: no acute distress - Labs CBC & Chem 7: 02/22/19 07:39 02/21/19 07:34 Labs: Microbiology - Last 24 Hours (Table) 02/20/19 19:40 Urine Culture - Preliminary Urine,Catheterized Assessment and Plan (1) Fracture of right hip Narrative/Plan: Se will continue with routine postop orthopedic protocol including pain management, wound care, PT, DVT prophylaxis and medical management. Expect that she will transfer to home tomorrow. She will require positioning of her body in ways not feasible with a regular bed in order to alleviate her pain due to her hip fracture. She will need a hospital bed. Current Visit: Yes Status: Acute Priority: Medium Code(s): S72.001A - F RACTURE OF UNSP PART OF NECK OF RIGHT FEMUR, INIT SNOMED Code(s): 593331737 Time with Patient: Less than 30
[2019-02-22] MEDS: SODIUM CHLORIDE 0.9% 1,000 ML IV SCH (12:12)
--- NOTE | 2019-02-22 12:12 | XR ---
Right hip HISTORY: Right hip open reduction internal fixation 2 intraoperative C-arm images document the procedure.
--- NOTE | 2019-02-22 12:14 | FL ---
Fluoroscopy HISTORY: Hip fracture 1 minute 42 seconds fluoroscopy time supplied to the referring clinician. 2 intraoperative C-arm stephanie ges document the procedure. See dictated report from orthopedic surgery.
[2019-02-22] MEDS: SENNOSIDES-DOCUSATE SODIUM 1 EACH TAB PO SCH (20:16)
[2019-02-22] MEDS: ONDANSETRON 4 MG/2 ML VIAL IVP PRN (21:15)
[2019-02-22] MEDS: LACTATED RINGERS 1,000 ML IV SCH (21:47)
[2019-02-23] MEDS: ceFAZolin IN SWFI 2 GM/20 ML SYRINGE IVP SCH ×2 (00:07→10:06)
[2019-02-23] MEDS: TEMAZEPAM 15 MG CAP PO PRN (00:08)
[2019-02-23 01:34] VITALS: BP 103/54; PULSE 81; RESP 18; TEMP 98.4
[2019-02-23] MEDS: HYDROcodone/APAP 5-325MG 1 EACH TAB PO PRN ×2 (06:42→12:02)
--- NOTE | 2019-02-23 09:44 | P.DS ---
Providers Date of admission: 02/20/19 12:30 Expected date of discharge: 02/23/19 Attending physician: Doug Leiva Consults: 02/20/19 12:13 Consult Physician Urgent Consulting Provider: Yoli Christine Consult Reason/Comments: Medical clearnace, EKG ordered routine, and CXR ordered routine Do you want consulting provider notified?: Yes Primary care physician: David Maguire - Discharge Diagnosis(es) (1) Fracture of right hip Patient was admitted to the OR on 02/21/2019 to undergo a percutaneous pinning of her right femoral neck fracture. She has suffered a fall at home resulting in an im pacted femoral neck fracture and desired to proceed with elective surgery after given informed consent. She underwent the above procedure which she tolerated well without complication. Postoperative hospital course has remained without complication. On day of discharge she is afebrile, vital signs stable, labs within acceptable ranges, tolerating by mouth meds and diet, voiding without difficulty, positive flatus, denies abdominal pain or calf pain, pain is controlled on oral pain medication and has no new complaints. Wound is benign, neurovascular status is intact, calf is soft and nontender, abdomen soft and nontender. Review of systems is negative for numbness, tingling, fever, chills, chest pain, shortness breath, nausea, vomiting, dizziness, headaches, slurred speech or other Current Visit: Yes Status: Acute Priority: Medium Procedures: Percutaneous pinning right hip fracture Patient Condition at Discharge: Good Plan - Discharge Summary Discharge Rx Participant: No New Discharge Prescriptions: No Action No Known Home Medications Discharge Medication List No Known Home Medications 02/20/19 [History] Follow up Appointment(s)/Referral(s): [facility],Equipment [NON-STAFF] - David Maguire MD [Primary Care Provider] - 1-2 days (Office closed Tuesday. Please call office Tuesday for follow-up appointment. Thank you.) [facility] Visiting Nurse, [NON-STAFF] - Activity/Diet/Wound Care/Special Instructions: Hospital Bed - will be delivered to the home by [facility]
[2019-02-23] MEDS: ASPIRIN 325 MG TAB PO SCH (10:06)
--- NOTE | 2019-02-23 10:14 | P.PN ---
Subjective Progress Note Date: 02/22/19 Is a pleasant 73-year-old lady patient of Dr. Pelletier. She has underlying history of osteoarthritis hyperlipidemia, DJD diverticulosis, admitted to the hospital after initial evaluation by Dr. Leiva at this office, patient sustained a fall 1 and playing pickle ball 02/20/2019, unable to bear weight on the right leg, pain is 9 out of 10, aggravated by movement. X-rays in the office shows valgus impacted femoral neck fracture right hip, Patient cannot bear weight, patient denies any chest pain shortness of breath palpitations, no fever no chills, no new rashes, no new medications from other physicians, no nausea vomiting diarrhea. Consult were made from orthopedics with plans for surgical interven tion to include percutaneous fixation of the right hip, on 02/21/2019. she denies any prior history of CHF, no prior UT, no prior CVA history, creatinine of 0.6, no diabetes. Clearance performed today with an RCRI, score of 0, Mace surgical risk of 1-5%, ASA anesthesia risk class I controlled hype rtension, EKG will be ordered, INR is 0.9, preop evaluaion with a BNP. , ekg reviewed, nsr no pathological q waves. 02/21: Chest x-ray reveals right subsegmental basilar infiltrate with tiny effusions. Patient is scheduled for percutaneous fixation of the right hip fracture this afternoon. Patient is cleared for medicine for surgical intervention. She denies having any chest pain, shortness of breath. No nausea or vomiting. She has been afebrile, blood pressure 123/59, pulse ox 99% on room air, pulse rate 75. White count is normal at 8.2, hemoglobin 12.6, creatinine 0.55. TSH 1.4-0. Urinalysis showed moderate leukoesterase, nitrate negative, WBC 16. 02/22: The patient's discharge plan is to return home in Hospital that has been ordered by orthopedics. Patient states her pain is tolerable. She has ambulated with a walker. She is urinating without any difficulties. Patient did not require Tirado catheter. Weightbearing is touch down with walker. No signs of infection at the wound. Patient has been afebrile, heart rate 77, blood pressure 130/65, pulse ox 99 on room air. Hemoglobin 12 and white count 8.1. Review Of Systems: Constitutional: No fever, no chills, no night sweats. No weight change. No weakness, fatigue or lethargy. No daytime sleepiness. EENT: No headache. No blurred vision or double vision, no loss of vision. No loss of Hearing, no ringing in the ears, no dizziness. No nasal drainage or congestion. No epistaxis. No sore throat. Lungs: No shortness of breath, cough, no sputum production. No wheezing. Cardiovascular: No chest pain, no lower extremity edema. No palpitations. No paroxysmal nocturnal dyspnea. No orthopnea. No lightheadedness or dizziness. No syncopal episodes. Abdominal: No abdominal pain. No nausea, vomiting. No diarrhea. No constipation. No bloody or tarry stools. Genitourinary: No dysuria, increased frequency, urgency. No urinary retention. Musculoskeletal: No myalgias. No muscle weakness, no gait dysfunction, no frequent falls. No back pain. No neck pain. Reports right hip discomfort. Integumentary: Reports wounds, no lesions. No rash or pruritus. No unusual bruising. No change in hair or nails. Neurologic: No aphasia. No facial droop. No change in mentation. No head injury. No headache. No paralysis. No paresthesia. Psychiatric: No depression. No anxiety. No mood swings. Endocrine: No abnormal blood sugars. No weight change. No excessive sweating or thirst. Objective - Vital Signs Vital signs: Vital Signs Temp 98.5 F 02/22/19 07:00 Pulse 70 02/22/19 07:00 Resp 16 02/22/19 07:00 BP 128/72 02/22/19 07:00 Pulse Ox 96 02/22/19 07:00 Intake & Output 02/21/19 02/22/19 02/22/19 18:59 06:59 18:59 Intake Total 451 1090 226 Output Total 25 Balance 426 1090 226 Intake: IV 451 Intake, IV Titration 550 Amount Lactated Ringers 1,000 ml 550 @ 20 mls/hr IV .Q24H MIK Rx#:[id number] Oral 540 226 Output: Estimated Blood Loss 25 Other: Voiding Method Bedpan Bedpan # Voids 1 - Exam General appearance: cooperative, no acute distress, patient resting comfortably in a recliner - EENT Eyes: anicteric sclerae, PERRLA, dentition normal, normal appearance ENT: hearing grossly normal, NA/AT, normal oropharynx - Neck Neck: normal ROM - Respiratory Respiratory: bilateral: CTA, negative: diminished, dullness, rales, rhonchi, wheezing, prolonged expiration - Cardiovascular Rhythm: regular Heart sounds: normal: S1, S2 Abnormal Heart Sounds: no systolic murmur, no diastolic murmur, no rub, no S3 Gallop, no S4 Gallop, no click, no other - Gastrointestinal General gastrointestinal: normal bowel sounds, soft - Integumentary Integumentary: normal, normal turgor - Neurologic Neurologic: CNII-XII intact - Musculoskeletal Musculoskeletal: strength equal bilaterally Small dressing in place to the right hip with no breakthrough bleeding or drainage. - Psychiatric Psychiatric: A&O x's 3, appropriate affect, intact judgment & insight - Labs CBC & Chem 7: 02/22/19 07:39 02/21/19 07:34 Labs: Microbiology - Last 24 Hours (Table) 02/20/19 19:40 Urine Culture - Preliminary Urine,Catheterized Assessment and Plan Plan: 1. Traumatic fracture involving the right femur, requiring IM nailing by Dr. Leiva on February 21 2019, continue incentive spirometry, GI prophylaxis and DVT prophylaxis 2. Chronic generalized arthritis him a patient's physically active prior to admission, 3. DVT prophylaxis would be aspirin twice a day post surgery 3. Hyperlipidemia not on statin 4. Age-related osteoporosis with current pathological fracture, patient is not on any medication prior to admission, we'll going to start her on vitamin D, bone density needs to be evaluated post discharge by PCP if not done 5. GI prophylaxis Pepcid 6. Leukocytosis possibly related to phase reactant, monitor for urinary sy mptomatology, urinalysis obtained with reflex Discharge plan: Home tomorrow Impression and plan of care have been directed as dictated by the signing physician. Rossy Crum nurse practitioner acting as scribe for signing physician.
[2019-02-23] MEDS: SODIUM CHLORIDE 0.9% 1,000 ML IV SCH (11:25)
[2019-02-23] MEDS: MULTIVITAMINS, THERA 1 EACH TAB PO SCH (11:26)
--- NOTE | 2019-02-23 13:48 | OP ---
OPERATIVE REPORT DATE OF PROCEDURE: 02/21/2019 PREOPERATIVE DIAGNOSIS: Right valgus impacted femoral neck fracture. POSTOPERATIVE DIAGNOSIS: Right valgus impacted femoral neck fracture. PROCEDURE PERFORMED: Closed reduction, percutaneous screw fixation for right femoral neck fracture. SURGEON: Doug Leiva MD. CHROME PLATER HELPER: Israel GARCIA. ANESTHESIA: Spinal with sedation. ESTIMATED BLOOD LOSS: 25 mL. TOURNIQUET: None. DRAINS: None. COMPLICATIONS: None apparent. DISPOSITION: Postanesthesia care unit. INDICATIONS: Patient is a very pleasant 73-year-old female who injured her right hip the day previous while playing pickleball. She was brought to my office by her . She had significant right groin pain. Workup including x-rays revealed a valgus impacted right femoral neck fracture. She was then admitted to the hospital from my office. She was seen by the medical service and cleared for surgery. The risks of the procedure were discussed with her and her in detail. These risks include, but are not limited to risk of infection, nerve damage, bleeding, pain, and a small risk of deep vein thrombosis which could lead to fatal pulmonary embolism. Further risks include lack of healing of the femoral neck fracture, migration of the hardware, which could necessitate removal of the screws and avascular necrosis of the femoral head, which could also necessitate further operation. All of her questions with regard to the risks were answered to her satisfaction. An appropriate informed consent was obtained. DESCRIPTION OF THE PROCEDURE: The patient identified in preoperative holding area. Surgical sites marked by both the patient and myself. She was given 2 grams of Ancef IV for prophylactic purposes. She was then transported to the operative suite. She was placed supine on the operative table. A spinal anesthetic was then administered dosed per the anesthesia department without apparent complication. She was then placed onto the fracture table well-padded in preparation for surgery. The fluoroscopy was brought in to ensure that the femoral neck fracture had remained nondisplaced and it had. The patient's right lower extremity was then prepped and draped in usual sterile fashion. Standard surgical pause undertaken to ensure that we were operating the correct site and that appropriate preoperative antibiotics had been given. All staff in the room were in agreement, we proceeded. I then brought the C-arm in. I utilized the C-arm to localize my lateral incision. A small 3 cm lateral incision was then made just slightly superior to the level of the lesser trochanter. Dissection was then carried down sharply through the tensor fascia. I then proceeded to place an inferior guide pin. This was placed in the center of the inferior central aspect of the femoral neck and taken up into the center of the femoral head. I then placed 2 more parallel pins both were superior to the inferior pin. These pins were spread anteriorly and then posteriorly along the femoral neck as close to the anterior and posterior cortex of the femoral neck and into the femoral head. All these pins were placed under fluoroscopic guidance to ensure proper placement. I then proceeded with placement of the screws. We used 7.0 mm Bhargav Magna-FX and partially threaded cannulated screws. I used a washer on all of the screws as well. These screws were then placed over the guide pins. All 3 screws had excellent purchase in the femoral head and a good bite. Fluoroscopy was again utilized to ensure proper placement and that they were contained within the femoral head and did not infringe upon the articular surface. The smooth guide pins were then removed. Final fluoroscopic images were taken. The screws, all 3 cannulated screws, were placed deep within the femoral head. There was a good spread with the screws as well. Final fluoroscopic images were taken. The wound was then thoroughly irrigated with sterile saline solution with antibiotic added. The tensor fascia was closed with 0 Vicryl interrupted suture. The subcutaneous tissue closed with 2-0 Vicryl interrupted suture and the skin was closed with a running 3-0 Quill suture. Sterile compressive dressing was then applied. All sponge and needle counts were deemed correct prior to closure. The patient tolerated the procedure without apparent complication. She was transferred to recovery room in stable condition. MMODL / IJN: [id number] /
--- NOTE | 2019-02-26 11:35 | CDI ---
Documentation Clarification Form Date: 02/26/19 From: Yolanda Craven Phone: If questions call Viola Bee @ [phone], Hours-8:30 am & 5 pm Toyin Varela Admit Date: 02/20/2019 12:30:00 PM Patient Name: Radha Alonso Visit Number: [id number] Discharge Date: 02/23/2019 12:23:00 PM ATTENTION: The Clinical Documentation Specialists (CDI) and [facility] Coding Staff appreciate your assistance in clarifying documentation. Please respond to the clarification below the line at the bottom and electronically sign. The CDI & [facility] Coding staff will review the response and follow-up if needed. Please note: Queries are made part of the Legal Health Record. If you have any questions, please contact the author of this message via ITS. Dr. Doug Leiva Conflicting documentation has been found in the medical record: Per Dr Christine's consult the patient has age-related osteoporosis with current pathological fracture. Per your documentation the patient has traumatic fracture involving the right femur (xr-subcaptial fx), requiring IM nailing. Treatment: she is not on any medication prior to admission, plan to start her on Vitamin D, bone density In your opinion, what is the most clinically appropriate diagnosis for this patient? Age -related osteoporosis with current pathological fracture Traumatic fracture involving the right femur (xr-subcapital fx) Other explanation of clinical findings Unable to determine (no explanation for clinical findings) Traumatic fracture MTDD
== END 2019-02-23 12:23 | disposition home health service (06) | DRG 482 ==
LOC: EC 11:40 → 4SSUR 12:30
PROVIDERS: ADMIT Orthopaedic Surgery Sports Medicine; ATTEND Orthopaedic Surgery Sports Medicine
PROC: 0QS636Z Reposition Right Upper Femur with Intramedullary Internal Fixation Device, Percutaneous Approach (ICD-10-PCS; principal; 2019-02-21 15:30)
DX: S72.011A Unspecified intracapsular fracture of right femur, initial encounter for closed fracture (principal); E78.5 Hyperlipidemia, unspecified; I10 Essential (primary) hypertension; M19.042 Primary osteoarthritis, left hand; M19.041 Primary osteoarthritis, right hand; K57.90 Diverticulosis of intestine, part unspecified, without perforation or abscess without bleeding; Z86.010 Personal history of colon polyps; Z98.42 Cataract extraction status, left eye; Z98.41 Cataract extraction status, right eye; Z96.1 Presence of intraocular lens; Z88.5 Allergy status to narcotic agent; Z91.048 Other nonmedicinal substance allergy status; W19.XXXA Unspecified fall, initial encounter; Y92.318 Other athletic court as the place of occurrence of the external cause; Y93.73 Activity, racquet and hand sports; Z82.62 Family history of osteoporosis
CPT/HCPCS: 36415; 71045; 73501; 73502; 80048; 80053; 81001; 83036; 83880; 84443; 85025; 85610; 85730; 87086; 93005; 96374; 99284

== ENCOUNTER → 2019-11-02 | Outpatient (CLI) | payer MEDICARE ==
[2019-11-02 17:22] LABS: Appearance,Urine Clear (Clear); Bilirubin,Urine Negative (Negative); Blood,Urine Negative (Negative); Color,Urine Yellow; Glucose,Urine (UA) Negative (Negative); Hyaline Casts,Urine 1 /lpf (0-2); Ketones,Urine Negative (Negative); Leukocyte Esterase,Urine Moderate (Negative); Mucus,Urine Rare /hpf; Nitrite,Urine Negative (Negative); PH, Urine 5.5 (5.0-8.0); Protein,Urine Negative (Negative); RBC,Urine 1 /hpf (0-5); Specific Gravity,Urine 1.023 (1.001-1.035); Urobilinogen,Urine <2.0 mg/dL (<2.0); WBC,Urine 13 /hpf (0-5)
[2019-11-02 17:23] LABS: HCT 39.4 % (34.0-46.0); HGB 12.8 gm/dL (11.4-16.0); MCH 30.5 pg (25.0-35.0); MCHC 32.6 g/dL (31.0-37.0); MCV 93.3 fL (80.0-100.0); Mean Platelet Volume 7.5; Platelet Count 297 k/uL (150-450); RBC 4.22 m/uL (3.80-5.40); RDW 13.6 % (11.5-15.5); WBC 5.8 k/uL (3.8-10.6)
[2019-11-02 17:31] LABS: INR 0.9 (<1.2); Partial Thromboplastin Time 22.6 sec (22.0-30.0); Prothrombin Time 9.7 sec (9.0-12.0)
[2019-11-02 23:14] LABS: African American GFR (CKD) 98.2 (60.0-200.0); Albumin 4.4 g/dL (3.80-4.90); Albumin/Globulin Ratio 2.2 (1.60-3.17); Anion Gap 7.4 mmol/L (4.00-12.00); BUN/Creat Ratio 24.29 Ratio (12.00-20.00); Calcium 9.4 mg/dL (8.7-10.3); Carbon Dioxide 25.6 mmol/L (21.6-31.8); Non-African American GFR(CKD) 84.8 (60.0-200.0); Potassium 3.8 mmol/L (3.5-5.5); Total Bilirubin 0.7 mg/dL (0.2-1.2); Total Protein 6.4 g/dL (6.2-8.2)
== END | disposition home or self-care (01) ==
LOC: LABWHC1 16:45
PROVIDERS: ATTEND Orthopaedic Surgery
DX: Z01.812 Encounter for preprocedural laboratory examination (principal); M17.11 Unilateral primary osteoarthritis, right knee; Z51.81 Encounter for therapeutic drug level monitoring; Z79.899 Other long term (current) drug therapy
CPT/HCPCS: 36415; 80053; 81001; 85027; 85610; 85730; 87070

== ENCOUNTER 2019-11-13 11:51 | Day surgery (SDC) | payer MEDICARE ==
[2019-11-02 14:43] VITALS: BMI 21.9
[~2019-11-13 11:51] MED LIST: ACETAMINOPHEN TAB 500 MG TAB PO ONE; DEXAMETHASONE SOD PHOSPHATE 10 MG/ML 1 ML VIAL IV ONE; GABAPENTIN 300 MG CAP PO ONE; HYDROmorphone 0.5 MG/0.5 ML SYRINGE IVP PRN; LIDOCAINE 1% 20 ML VIAL (10MG/ML) FOR IV START INTRADERMA PRN; MELOXICAM 7.5 MG TAB PO ONE; ONDANSETRON 4 MG/2 ML VIAL IVP ONE; TRANEXAMIC ACID 1,000 MG in SODIUM CHLORIDE 0.9% 100 ML IVPB ONE; fentaNYL (PF) 50 MCG/ML 2 ML AMP IV PRN
[2019-11-13] MEDS: LACTATED RINGERS 1,000 ML IV SCH (12:16)
[2019-11-13] MEDS ORDERED: MIDAZOLAM 2 MG/2 ML VIAL IVP ONE (12:37)
[2019-11-13] MEDS ORDERED: TRANEXAMIC ACID 1,000 MG/10 ML VIAL ONE (12:54)
[2019-11-13] MEDS ORDERED: MIDAZOLAM 2 MG/2 ML VIAL ONE (12:54)
[2019-11-13] MEDS ORDERED: ePHEDrine SULFATE/0.9% NACL/PF 50 MG/5 ML SYRINGE IV ONE (12:54)
[2019-11-13] MEDS ORDERED: SODIUM CHLORIDE 0.9% 100 ML BAG ONE (12:54)
[2019-11-13] MEDS: ROPIVACAINE 246.25 MG, EPINEPHrine 0.5 MG, KETOROLAC 30 MG, cloNIDine HCL/PF 80 MCG, WA... MISCELLANE ONE ×10 (13:24→14:01)
[2019-11-13] MEDS ORDERED: ceFAZolin 3,000 MG in SODIUM CHLORIDE 0.9% IRRIGATIO 3,000 ML IRRIGATION ONE (13:24)
--- NOTE | 2019-11-13 13:41 | P.ANPRN ---
Procedure Note - Anesthesia - Nerve Block Performed Right Adductor Canal Time Out Performed: Yes (12:37) Date of Procedure: 11/13/19 Procedure Start Time: :37 Procedure Stop Time: :49 Location of Patient: PreOp Indication: Acute Post-Operative Pain, Requested by Surgeon (Dr Shankar Palacio) Sedation Type: Sedate with meaningful contact maintained Preparation: Sterile Prep, Sterile Dressing Position: Supine Catheter: Indwelling Needle Types: On-Q Needle Gauge: 21 Ultrasound used to visualize needle placement: Yes Ultrasound used to observe medication spread: Yes Injectate: 0.5% Ropivacaine (see comment for volume) (22cc) Blood Aspirated: No Pain Paresthesia on Injection Noted: No Resistance on Injection: Normal Image Stored and Saved: Yes Events: Uneventful and Well Tolerated
[2019-11-13] MEDS ORDERED: HYDROcodone/APAP 5-325MG 1 EACH TAB PO PRN ×2 (14:32)
[2019-11-13] MEDS ORDERED: ONDANSETRON 4 MG/2 ML VIAL IVP PRN (14:32)
[2019-11-13] MEDS ORDERED: NA PHOS,M-B/NA PHOS,DI-BA 133 ML ENEMA RECTAL PRN (14:32)
[2019-11-13] MEDS ORDERED: BISACODYL 10 MG SUPP RECTAL PRN (14:32)
[2019-11-13] MEDS ORDERED: NALOXONE 0.4 MG/ML 1 ML VIAL IV PRN (14:32)
[2019-11-13] MEDS ORDERED: HYDROmorphone 0.5 MG/0.5 ML SYRINGE IVP PRN ×3 (14:32)
[2019-11-13] MEDS ORDERED: MAGNESIUM HYDROXIDE 2,400 MG/10 ML CUP PO PRN (14:32)
[2019-11-13] MEDS ORDERED: ROPIVACAINE 0.2%-NS ON-Q PUMP 1,090 MG, EMPTY PAIN BALL 1 EACH MISCELLANE PRN (14:50)
--- NOTE | 2019-11-13 14:52 | P.OP ---
Date of Procedure: 11/13/19 Preoperative Diagnosis: Severe osteoarthritis of the right knee with valgus deformity Postoperative Diagnosis: Severe osteoarthritis of the right knee with valgus deformity Procedure(s) Performed: Right total knee arthroplasty Implants: Contreras and Nephew Journey II CR Oxinium Bi-cruciate stabilized femoral component size 5, right Contreras [employer] Nephew Journey right nonporous tibial baseplate size 3 Contreras & Nephew Journey II, constrained articular insert, size 11 mm, Size 3-4 right Contreras [employer] Nephew Journey BCS resurfacing oval patellar component, 29 mm All components were cemented using Palacos R bone cement.. The articulation is Oxinium on polyethylene. Anesthesia: spinal Surgeon: Shankar Palacio Machine Set Up #1: Rita Mulligan Estimated Blood Loss (ml): 25 Pathology: other (Bone and cartilage) Condition: stable Disposition: PACU Indications for Procedure: After failure of conservative treatment we discussed the surgical and nonsurgical treatment options at length. Patient wishes to proceed with a total knee arthroplasty. Complications specific to this procedure were discussed at length, including but not limited to infection, bleeding, stiffness, and nerve injury. Patient is aware of all these complications and informed consent was obtained Operative Findings: The operative findings are consistent with severe osteoarthritis of the right knee with a valgus deformity. Description of Procedure: Patient was seen in the preoperative area consent was reviewed and operative site was marked with a skin marker. Patient was then brought to the operating room and given preoperative antibiotics intravenously. A spinal anesthetic was administered by the anesthesia department. A tourniquet was placed on the upper thigh and the lower extremity was prepped and draped in usual sterile fashion. A gram of transexamic acid was given. A universal timeout was then performed which confirmed the patient's name, surgical site, ALLERGIES, and consent. The lower extremity was then exsanguinated and tourniquet was inflated to 250 mmHg. A standard and anterior midline approach to the knee was performed. The skin and subcutaneous tissue was dissected down to the patellar tendon. A medial parapatellar arthrotomy was then performed. The knee was then extended, the patellar was everted, and the knee was again flexed. Anterior horns of both menisci were excised, and a minimal medial release was performed because of the valgus deformity of the knee.. On gross visual inspection, there was complete loss of articular cartilage in all 3 compartments of the knee. There was also significant cartilage damage in the lateral compartment. There were multiple periarticular osteophytes which were then removed with a Ronguer. The femoral canal was then opened with the appropriate drill, and the intramedullary femoral cutting guide was then placed and set for 4 of valgus. The distal femoral cutting block was then pinned in place, and the distal femur was then cut. The cutting block was then removed and the cut was checked for flatness. Next, the sizing guide was then placed and set for 3 external rotation based off of the epicondylar axis and Whitesides line. After the femur was sized, the appropriate 4-in-1 cutting block was then pinned in place. The anterior condyles were cut without notching. The posterior and chamfer cuts were pe rformed while protecting the collateral ligaments. The cutting block was then removed. Attention was then directed to the tibia. The remaining ACL was removed with a Ronguer, and the tibia was then gently subluxed forward with a large bent knee retractor. Any remaining menisci was excised. The posterior lateral corner was cauterized in order to cauterize the lateral geniculate artery. The extra medullary tibial cutting guide was then placed, set for the appropriate rotation, slope, and depth of resection. The proximal tibia cutting guide was then pinned in place. Proximal tibia was then cut and sized. The femoral trial was then placed. The box cutting guide was placed and then using the appropriate reamer, the bone was reamed for the box. Then the box osteotome was used to finish the reaming. Next trials were then placed with the appropriate-sized insert. The knee was able to fully extend and flex to 130 and was stable throughout all range of motion. The knee was then extended, patella everted. Patella was then measured, and then using an osteotomy guide, the patella was cut at the appropriate level. The patella was then measured and drilled and the patella trial was then placed. The knee was then taken through range of motion with the patella trial and the patella tracked normally. The knee was then extended patella trial was then removed and the patella was everted. Knee was then flexed and lug holes were drilled through the femoral trial and the femoral trial was then removed. The tibial was then exposed, and the tibial broach guide was then pinned in place after it was set for the appropriate rotation to allow for the most coverage without overhang. The tibia was then broached. The cut surfaces of bone were then irrigated with pulsatile lavage. The posterior structures were injected with the ropivacaine solution. The components were then opened, the cement was mixed, and the components were then cemented in place. The cement was allowed to harden with the knee in full extension. While the cement was hardening, the remaining soft tissues were injected with the ropivacaine solution. After the cemented hardened. The tourniquet was released, and hemostasis was obtained. A second gram of transexamic acid was given. The knee was again irrigated. The knee was again taken through range of motion and found to be stable throughout all range of motion of 0-130, and the patella tracked normally. The fascia was then closed with #2 strata fix suture. The subcutaneous tissue was closed with 3-0 Vicryl and 3-0 strata fix. Dermabond tape was used for the skin, and the patient was placed in a sterile dressing. Patient was then transferred to recovery room in stable condition. The assistant county attorney INESSA Rodriguez was required due the complexity surgery and the need for a skilled surgical services manager. She assisted in positioning, draping, retraction, and closure of the woundclosure of the wound.
[2019-11-13] MEDS ORDERED: ONDANSETRON 4 MG/2 ML VIAL IVP ONE (14:53)
[2019-11-13] MEDS ORDERED: LACTATED RINGERS 1,000 ML IV ONE (14:57)
--- NOTE | 2019-11-13 15:36 | XR ---
EXAMINATION TYPE: XR knee limited RT DATE OF EXAM: 11/13/2019 COMPARISON: NONE HISTORY: Postop TECHNIQUE: 2 views FINDINGS: There is a right knee prosthesis. Components are in anatomic position. IMPRESSION: No complicating process seen.
[2019-11-13] MEDS ORDERED: SENNOSIDES-DOCUSATE SODIUM 1 EACH TAB PO SCH (21:00)
[2019-11-13] MEDS: SODIUM CHLORIDE 0.9% 1,000 ML IV SCH (21:30)
[2019-11-13] MEDS: ASPIRIN 325 MG TAB PO SCH (21:32)
[2019-11-14] MEDS: LACTATED RINGERS 1,000 ML IV SCH (03:34)
[2019-11-14] MEDS: SODIUM CHLORIDE 0.9% 1,000 ML IV SCH (04:19)
[2019-11-14 07:07] LABS: Basophils % (A) 0 %; Eosinophils % (A) 0 %; HCT 33.2 % (34.0-46.0); HGB 10.9 gm/dL (11.4-16.0); Lymphocytes # (A) 1.2 k/uL (1.0-4.8); Lymphocytes % (A) 10 %; MCH 30.5 pg (25.0-35.0); MCHC 32.7 g/dL (31.0-37.0); MCV 93.1 fL (80.0-100.0); Mean Platelet Volume 7.3; Monocytes # (A) 0.7 k/uL (0-1.0); Monocytes % (A) 6 %; Neutrophils # (A) 9.6 k/uL (1.3-7.7); Neutrophils % (A) 83 %; Platelet Count 241 k/uL (150-450); RBC 3.57 m/uL (3.80-5.40); RDW 13.9 % (11.5-15.5); WBC 11.6 k/uL (3.8-10.6)
[2019-11-14] MEDS: ASPIRIN 325 MG TAB PO SCH (07:20)
[2019-11-14 08:19] VITALS: BP 104/61; PULSE 97; RESP 18; TEMP 97.9
[2019-11-14] MEDS ORDERED: MELOXICAM 7.5 MG TAB PO SCH (09:00)
--- NOTE | 2019-11-14 09:38 | P.DS ---
Providers Expected date of discharge: 11/14/19 Attending physician: Shankar Palacio Consults: 11/13/19 14:32 Consult Physician Routine Consulting Provider: Jack Cortes Reason/Comments: medical management Do you want consulting provider notified?: Yes Primary care physician: [facility] Course: This is a 73-year-old female who was last seen with complaint of continued right knee pain. The patient has a known history of degenerative arthritis of the right knee and presents to discuss surgical options. After discussion and consideration the patient elects to proceed with total right knee arthroplasty. The patient is seen preoperatively by Dr. Palacio and cleared for surgery. The patient is admitted to [facility] for total right knee arthroplasty. The procedures performed without complication or sequelae. Patient is doing well postoperatively. Vital signs are stable at discharge. Labs are stable at discharge. The patient is examined bedside this morning. She states her pain is currently well-controlled. She states she has very been up with physical therapy, and is ambulating well with walker with minimal assistance. She is tolerating her diet well. She has not a bowel movement postoperatively, although she denies abdominal pain. She denies chest pain, shortness breath, nausea, vomiting, fevers, chills. She feels very well this morning. On examination, the patient is sitting up in bed in no apparent distress. She is alert and oriented 3. On inspection of the right knee, there is a clean, dry, intact surgical dressing in place anterior knee. There is no surrounding erythema or warmth, there is also no drainage. Right lower extremity is warm and well-perfused with brisk capillary refill distally. The patient is able to dorsiflex and plantar flex the ankle without issue or pain. Motor and sensory function are intact of the right lower extremity. Calves are soft and nontender bilaterally. The patient is discharged to home on postop day #1 pending medical clearance. Please see orders and refer to the med rec for accurate list of medications. Plan - Discharge Summary Discharge Rx Participant: No New Discharge Prescriptions: New Aspirin 325 mg PO BID #60 tab Sennosides [Senokot] 2 tab PO DAILY PRN #60 tablet PRN Reason: Constipation Hydrocodone/Acetaminophen [Colerain 5-325] 1 tab PO Q4-6H PRN #40 tab PRN Reason: Pain No Action Ergocalciferol [Vitamin D2] 50,000 unit PO WE Acetaminophen [Tylenol Extra Strength] 500 mg PO HS PRN PRN Reason: Pain Discharge Medication List Acetaminophen [Tylenol Extra Strength] 500 mg PO HS PRN 11/02/19 [History] Ergocalciferol [Vitamin D2] 50,000 unit PO WE 11/02/19 [History] Aspirin 325 mg PO BID #60 tab 11/13/19 [Rx] Sennosides [Senokot] 2 tab PO DAILY PRN #60 tablet 11/13/19 [Rx] Hydrocodone/Acetaminophen [Colerain 5-325] 1 tab PO Q4-6H PRN #40 tab 11/14/19 [Rx] Follow up Appointment(s)/Referral(s): [facility], [NON-STAFF] - Shankar Palacio DO [Doctor of Osteopathic Medicine] - 2 Weeks Activity/Diet/Wound Care/Special Instructions: Weightbearing as tolerated with a walker. Leave dressing intact. May be removed by home care nurse or by patient in 10 days. May shower with dressing on. Recommend use of compression stockings daily for at least 2 weeks during the day to help prevent swelling and blood clots. May remove at night before sleeping. Please follow up with [facility] and call with any questions or concerns, . Discharge Disposition: HOME WITH HOME HEALTH SERVICES
--- NOTE | 2019-11-14 10:50 | P.PN ---
Progress Note - Text Progress Note Date: 11/14/19 Patient without complaints. Minimal knee pain. Pain 2/10 at rest and 5/10 with physical therapy. Denies leg weakness. R adductor catheter site c/d @ 8 ml/hr A/P POD#1 s/p R TKA with R adductor catheter - continue current regimen
== END 2019-11-14 15:24 | disposition home health service (06) ==
LOC: OR 11:51 → 4SSUR 14:39 → OR 11-14 15:24
PROVIDERS: ATTEND Orthopaedic Surgery
DX: M17.11 Unilateral primary osteoarthritis, right knee (principal); M21.061 Valgus deformity, not elsewhere classified, right knee; E78.5 Hyperlipidemia, unspecified; G43.909 Migraine, unspecified, not intractable, without status migrainosus; E55.9 Vitamin D deficiency, unspecified; M81.0 Age-related osteoporosis without current pathological fracture; Z98.890 Other specified postprocedural states; Z88.5 Allergy status to narcotic agent; Z96.641 Presence of right artificial hip joint; Z97.3 Presence of spectacles and contact lenses; Z99.89 Dependence on other enabling machines and devices; Z82.61 Family history of arthritis; Z82.62 Family history of osteoporosis
CPT/HCPCS: 64448; 76942; 73560; 27447; C1713; C1776; J2250; J0171; J1100; J0690 ×2; J2405; J1885; J2795 ×2; J0735; 85025

== ENCOUNTER → 2019-12-17 | Outpatient (CLI) | payer MEDICARE ==
--- NOTE | 2019-12-18 11:15 | MM ---
Reason for exam: screening (asymptomatic). Last mammogram was performed 2 years and 3 months ago. History: Patient is postmenopausal. Family history of breast cancer in paternal aunt at age 90. Benign left mammotome panel of the left breast, December 02, 2008. Reductions of both breasts, January 16, 2008. Benign left mammotome panel of the left breast, February 13, 2007. Took estrogen for 5 years beginning at age 43. Physical Findings: A clinical breast exam by your physician is recommended on an annual basis and results should be correlated with mammographic findings. MG 3D Screening Mammo W/Cad Bilateral CC and MLO view(s) were taken. Prior study comparison: September 09, 2017, bilateral MG 3d screening mammo w/cad. August 03, 2016, bilateral MG 3d screening mammo w/cad. The breast tissue is heterogeneously dense. This may lower the sensitivity of mammography. Previous mammotome biopsy in the left breast. There is no discrete abnormality. Skin lesion left breast. ASSESSMENT: Benign, BI-RAD 2 RECOMMENDATION: Routine screening mammogram of both breasts in 1 year.
== END | disposition home or self-care (01) ==
LOC: RADMAMWWP 10:52
PROVIDERS: ATTEND Internal Medicine
DX: Z12.31 Encounter for screening mammogram for malignant neoplasm of breast (principal)
CPT/HCPCS: 77063; 77067

== ENCOUNTER → 2021-02-10 | Outpatient (CLI) | payer MEDICARE ==
--- NOTE | 2021-02-12 11:45 | MM ---
Reason for exam: screening (asymptomatic). Last mammogram was performed 1 year and 2 months ago. History: Patient is postmenopausal. Family history of breast cancer in paternal aunt at age 90. Benign left mammotome panel of the left breast, December 02, 2008. Reductions of both breasts, January 16, 2008. Benign left mammotome panel of the left breast, February 13, 2007. Took estrogen for 5 years beginning at age 43. Physical Findings: A clinical breast exam by your physician is recommended on an annual basis and results should be correlated with mammographic findings. MG 3D Screening Mammo W/Cad Bilateral CC and MLO view(s) were taken. Prior study comparison: December 17, 2019, bilateral MG 3d screening mammo w/cad. September 09, 2017, bilateral MG 3d screening mammo w/cad. The breast tissue is heterogeneously dense. This may lower the sensitivity of mammography. Previous mammotome biopsy in the left breast. There is chronic nodularity in the left breast. No significant changes when compared with prior studies. ASSESSMENT: Benign, BI-RAD 2 RECOMMENDATION: Routine screening mammogram of both breasts in 1 year.
== END | disposition home or self-care (01) ==
LOC: RADMAMWWP 12:44
PROVIDERS: ATTEND Internal Medicine
DX: Z12.31 Encounter for screening mammogram for malignant neoplasm of breast (principal)
CPT/HCPCS: 77063; 77067

== ENCOUNTER 2021-04-10 07:56 | Day surgery (SDC) | payer MEDICARE ==
[2021-04-08 10:20] VITALS: BMI 23.5
[~2021-04-10 07:56] MED LIST changes: -ACETAMINOPHEN TAB 500 MG TAB PO ONE; -DEXAMETHASONE SOD PHOSPHATE 10 MG/ML 1 ML VIAL IV ONE; -GABAPENTIN 300 MG CAP PO ONE; -HYDROmorphone 0.5 MG/0.5 ML SYRINGE IVP PRN; +LACTATED RINGERS 1,000 ML IV SCH; +LIDOCAINE 1% (10MG/ML) FOR IV START INTRADERMA PRN; -LIDOCAINE 1% 20 ML VIAL (10MG/ML) FOR IV START INTRADERMA PRN; -MELOXICAM 7.5 MG TAB PO ONE; -ONDANSETRON 4 MG/2 ML VIAL IVP ONE; -TRANEXAMIC ACID 1,000 MG in SODIUM CHLORIDE 0.9% 100 ML IVPB ONE; -fentaNYL (PF) 50 MCG/ML 2 ML AMP IV PRN
[2021-04-10 08:22] VITALS: TEMP 98.2
[2021-04-10] MEDS ORDERED: MIDAZOLAM 2 MG/2 ML VIAL ONE (08:43)
[2021-04-10] MEDS ORDERED: PROPOFOL 10 MG/ML 20 ML VIAL IV ONE (08:43)
--- NOTE | 2021-04-10 09:03 | P.PCN ---
Date of Procedure: 04/10/21 Procedure(s) Performed: BRIEF HISTORY: Patient is a 75-year-old pleasant white white female scheduled for an elective colonoscopy as a part of evaluation of intermittent lower abdominal pain and change in bowel habits for the last several months duration. PROCEDURE PERFORMED: Colonoscopy. PREOPERATIVE DIAGNOSIS: Intermittent lower abdominal pain and change in bowel habits 6 months duration. IV sedation per Anesthesia. PROCEDURE: After informed consent was obtained, the patient, was brought into [facility] endoscopy unit. IV sedation was administered by Anesthesia under continuous monitoring. Digital rectal examination was normal. Initially the Olympus CF-160 flexible video colonoscope was then inserted in the rectum, gradually advanced into the cecum without any difficulty. Careful examination was performed as the scope was gradually being withdrawn. Ileocecal valve and the appendiceal orifice were visualized and appeared normal. Prep was excellent. Mucosa of the cecum, ascending colon, transverse colon, descending colon, appeared normal. There were moderate sigmoid diverticulosis seen. Rest of the sigmoid colon, and rectum appeared normal. Retroflexion was performed in the rectum and no lesions were seen. The patient tolerated the procedure well. IMPRESSION: Normal-appearing colon from rectum to cecum with no evidence of colitis or colorectal neoplasia . Moderate sigmoid diverticulosis RECOMMENDATIONS: Findings of this examination were discussed with the patient as well as her family. She was advised to be a high-fiber diet and take fiber supplements a regular basis..
[2021-04-10 09:09] VITALS: RESP 16
[2021-04-10 09:22] VITALS: BP 104/63; PULSE 71
== END 2021-04-10 10:00 | disposition home or self-care (01) ==
LOC: ORWHC2ENDO 07:56
PROVIDERS: ATTEND Internal Medicine Gastroenterology
DX: R10.9 Unspecified abdominal pain (principal); R19.4 Change in bowel habit; K57.90 Diverticulosis of intestine, part unspecified, without perforation or abscess without bleeding; E78.5 Hyperlipidemia, unspecified; M19.90 Unspecified osteoarthritis, unspecified site; Z88.5 Allergy status to narcotic agent
CPT/HCPCS: 45378; J2250; J2704

== ENCOUNTER → 2021-04-29 | Outpatient (CLI) | payer MEDICARE ==
--- NOTE | 2021-04-29 10:22 | US ---
EXAMINATION TYPE: US gallbladder DATE OF EXAM: 04/29/2021 COMPARISON: NONE CLINICAL HISTORY: K59.1 Functional diarrhea. Irregular bowel issues and diarrhea x 2 months EXAM MEASUREMENTS: Liver Length: 12.5 cm Gallbladder Wall: 0.1 cm CBD: 0.5 cm Right Kidney: 9.0 x 3.7 x 4.7 cm Pancreas: visualized portions wnl, tail obscured by overlying midline bowel gas Liver: wnl Gallbladder: wnl Evidence for sonographic Leiva's sign: no CBD: wnl Right Kidney: wnl IMPRESSION: No definite sonographic abnormality.
== END | disposition home or self-care (01) ==
LOC: RADUSWWP 09:47
PROVIDERS: ATTEND Internal Medicine
DX: K59.1 Functional diarrhea (principal)
CPT/HCPCS: 76705

== ENCOUNTER → 2021-09-14 | Outpatient (CLI) | payer MEDICARE ==
[2021-09-14 16:32] LABS: Albumin 3.9 g/dL (3.5-5.0); Calcium 9.3 mg/dL (8.4-10.2); Potassium 4.2 mmol/L (3.5-5.1); Total Bilirubin 0.4 mg/dL (0.2-1.3); Total Protein 6.7 g/dL (6.3-8.2)
[2021-09-14 16:33] LABS: HCT 34.5 % (34.0-46.0); HGB 11.3 gm/dL (11.4-16.0); MCH 31.8 pg (25.0-35.0); MCHC 32.7 g/dL (31.0-37.0); MCV 97.3 fL (80.0-100.0); Mean Platelet Volume 7.3; Platelet Count 229 k/uL (150-450); RBC 3.54 m/uL (3.80-5.40); RDW 13.9 % (11.5-15.5); WBC 5.5 k/uL (3.8-10.6)
[2021-09-14 16:48] LABS: Appearance,Urine Clear (Clear); Bilirubin,Urine Negative (Negative); Blood,Urine Negative (Negative); Color,Urine Yellow; Glucose,Urine (UA) Negative (Negative); Ketones,Urine Negative (Negative); Leukocyte Esterase,Urine Trace (Negative); Mucus,Urine Few /hpf; Nitrite,Urine Negative (Negative); PH, Urine 5.5 (5.0-8.0); Protein,Urine Negative (Negative); RBC,Urine 1 /hpf (0-5); Specific Gravity,Urine 1.025 (1.001-1.035); WBC,Urine 5 /hpf (0-5)
[2021-09-14 16:51] LABS: INR 0.9 (<1.2); Prothrombin Time 10.1 sec (9.0-12.0)
[2021-09-14 17:01] LABS: Partial Thromboplastin Time 21.6 sec (22.0-30.0)
== END | disposition home or self-care (01) ==
LOC: LABPAT 14:51
PROVIDERS: ATTEND Orthopaedic Surgery
DX: Z01.818 Encounter for other preprocedural examination (principal); R00.1 Bradycardia, unspecified
CPT/HCPCS: 80053; 81001; 85027; 85610; 85730; 87070; 93005

== ENCOUNTER 2021-09-29 09:52 | Day surgery (SDC) | payer MEDICARE ==
[2021-09-25 15:44] VITALS: BMI 21.1
[~2021-09-29 09:52] MED LIST changes: +ACETAMINOPHEN TAB 500 MG TAB PO PRN; +DEXAMETHASONE SOD PHOSPHATE 4 MG/ML 1 ML VIAL IV ONE; +GABAPENTIN 300 MG CAP PO PRN; +HYDROmorphone 0.5 MG/0.5 ML SYRINGE IVP PRN; +MELOXICAM 7.5 MG TAB PO PRN; +MIDAZOLAM 2 MG/2 ML VIAL IV PRN; +ONDANSETRON 4 MG/2 ML VIAL IVP ONE; +TRANEXAMIC ACID 1,000 MG in SODIUM CHLORIDE 0.9% 100 ML IVPB PRN
[2021-09-29] MEDS ORDERED: HYDROmorphone 0.2 MG/1 ML SYRINGE IVP PRN (10:45)
[2021-09-29] MEDS ORDERED: HYDROmorphone 0.5 MG/0.5 ML SYRINGE IVP PRN ×2 (10:45)
[2021-09-29] MEDS ORDERED: MAGNESIUM HYDROXIDE 2,400 MG/10 ML CUP PO PRN (10:45)
[2021-09-29] MEDS ORDERED: ONDANSETRON 4 MG/2 ML VIAL IVP PRN (10:45)
[2021-09-29] MEDS ORDERED: NALOXONE 0.4 MG/ML 1 ML VIAL IV PRN (10:45)
[2021-09-29] MEDS ORDERED: HYDROcodone/APAP 7.5-325MG 1 EACH TAB PO PRN ×2 (10:47)
[2021-09-29] MEDS ORDERED: MIDAZOLAM 2 MG/2 ML VIAL ONE (11:04)
[2021-09-29] MEDS ORDERED: SODIUM CHLORIDE 0.9% IRRIG 1,000 ML BTL IRRIGATION ONE (11:04)
[2021-09-29] MEDS ORDERED: PROPOFOL 10 MG/ML 20 ML VIAL IV ONE (11:04)
[2021-09-29] MEDS ORDERED: SODIUM CHLORIDE 0.9% 100 ML BAG ONE (11:04)
[2021-09-29] MEDS ORDERED: HEPARIN SODIUM,PORCINE 10,000 UNIT/ML 1 ML VIAL ONE (11:04)
[2021-09-29] MEDS ORDERED: TRANEXAMIC ACID 1,000 MG/10 ML VIAL ONE (11:04)
[2021-09-29] MEDS ORDERED: ESMOLOL 100 MG/10 ML VIAL ONE (11:04)
[2021-09-29] MEDS ORDERED: ceFAZolin 1,000 MG in SODIUM CHLORIDE 0.9% 1,000 ML IRRIGATION ONE (11:07)
[2021-09-29] MEDS: ROPIVACAINE/EPI/CLONIDINE/KET 50 ML SYRINGE MISCELLANE PRN ×2 (11:09→12:16)
[2021-09-29] MEDS ORDERED: LACTATED RINGERS 1,000 ML IV ONE (12:00)
--- NOTE | 2021-09-29 12:30 | P.OP ---
Date of Procedure: 09/29/21 Preoperative Diagnosis: 1. Severe osteoarthritis right hip 2. Retained hardware right hip Postoperative Diagnosis: 1. Severe osteoarthritis right hip 2. Retained hardware right hip Procedure(s) Performed: 1. Removal of hardware right hip 2. Right total hip arthroplasty with a direct anterior approach Implants: [employer] Polarstem standard size 2 [employer] R3, 3 hole hemispherical acetabular shell, 48 mm [employer] Reflection 6.5 mm cancellus screw, 20 mm, 25 mm, 15 mm [employer] R3, XLPE 20 acetabular liner [employer] Oxinium femoral head 32 m, -3 All components were press-fit. The articulation is Oxinium on polyethylene. Anesthesia: spinal Surgeon: Shankar Palacio [employer] Gunsmith #1: Rita Mulligan Estimated Blood Loss (ml): 50 Pathology: other (Femoral head) Condition: stable Disposition: PACU Indications for Procedure: After failure of conservative treatment we discussed the surgical and nonsurgical treatment options at length. Patient wishes to proceed with removal of hardware and a total hip arthroplasty with a direct anterior approach. Complications specific to this procedure were discussed at length, including but not limited to infection, leg length discrepancy, dislocation, nerve injury, and fracture. Covid-19 was also discussed at length with the patient, and they are aware of the current policies and procedures. The patient was given the option of delaying surgery, but they elect to proceed knowing these risks. Patient is aware of all these complications and informed consent was obtained Operative Findings: The operative findings are consistent with retained hardware of the right hip and severe osteoarthritis of the right hip Description of Procedure: Patient was seen and evaluated in the preoperative area and the consent was reviewed. The operative site was marked with a skin marker. The patient was then brought to the operating room and given preoperative antibiotics intravenously. 1 g of Tranexamic acid was also given intravenously. A spinal anesthetic was administered by the anesthesia department. The patient was then placed on the Disney table with the bony prominences well-padded. The hip area was then prepped with a ChloraPrep solution and draped in the usual sterile fashion. A universal timeout was then performed, which confirmed the patient's name, surgical site, ALLERGIES, and procedure being performed on the consent. Next the incision site was located at 1 cm distal and 2 cm lateral to the anterior superior iliac spine. The skin and subcutaneous tissues were sharply incised. Incision was carefully dissected down to the fascia overlying the tensor fascia viri muscle. This fascia was then incised in line with the incision. Care was taken to stay laterally in order to avoid injuring the lateral femoral cutaneous nerve. Next, using blunt finger dissection, the tensor fascia viri muscle was dissected off its investing fascia. The muscle was then carefully retracted laterally with a cobra retractor over the lateral neck of the femur. Next, the circumflex vessels were identified and cauterized using the AquaMantis device. The anterior hip capsule was then exposed. The capsule was then opened and an inverted T fashion. Cobra retractors were then placed intracapsularly. The retractors were maintained intracapsular throughout the procedure. The proximal femur was then visualized. Next, the 3 screws and washers were visualized and removed without difficulty using the appropriate screwdriver. Fluoroscopic x- rays were then taken in order to evaluate the preoperative leg lengths. A small amount of traction was placed on the leg. The femoral neck was then osteotomized appropriate level above the lesser trochanter. A small wedge of bone was then removed from the remaining femoral head. Next, using a corkscrew the femoral head was removed from the acetabulum. On gross visual inspection, the femoral head had complete loss of articular cartilage and multiple periarticular osteophytes. The femoral head was then measured. Attention was then turned to the acetabulum. The acetabulum was exposed and any remaining labrum was excised. Sequential reaming of the acetabulum was performed using fluoroscopic guidance until there was a good bed of bleeding cancellus bone. When the appropriate size was reached, a trial was then placed. The position and fit of the trial was checked with fluoroscopy. The trial was then removed. Then, using fluoroscopic guidance, the final implant was impacted at 20 of anteversion and 40 of abduction, and fully seated in the acetabulum. 2 screws were then placed in the acetabulum. Again fluoroscopy was used to check position of the screws. Next, the liner was then impacted, with a 20 elevated liner located in the anterior superior quadrant. Component locking was confirmed. Attention was then directed to the femur. With the aid of the Disney table, the femur was externally rotated to approximately 130, extended, and adducted under the opposite leg. A side hook was then placed under the proximal femur, and the side hook elevator was used to elevate the proximal femur while releasing the capsule. Retractors were then placed. A capsular release was performed, as well as a release of the conjoined tendon, which afforded excellent visualization of the proximal femur. Next, a box osteotome was used to lateralize the proximal femur. A hand packer was then used to locate the femoral canal. Sequential broaching was then performed with appropriate size which afforded excellent fixation in the proximal femur. A trial was then placed with appropriate head and neck, and the hip was gently reduced with the aid of the Disney table. Fluoroscopy was then used to check position of the components, as well as to ensure equal leg lengths. The hip was then gently dislocated and the trials were then removed. Final implants were then impacted and the hip was again reduced. Final fluoroscopic x-rays confirmed that the components were in anatomic position, as well as equal leg lengths. The hip was also taken through range of motion, and found to be stable. The hip was then copiously irrigated with antibiotic solution with pulsatile lavage. The hip was then irrigated with Irrisept solution. The soft tissues were then injected with a ropivacaine solution, which consisted of 246.25 mg of ropivacaine, 0.5 mg of epinephrine, 30 mg of Toradol, 80 g of clonidine, and 48.45 mL of sterile water, for a total of 100 mL of fluid injected. A second dose of 1 g of Tranexamic acid was also given intravenously. Any blood collected by [employer]ver was then returned to the patient at this time. The fascia was then closed with 2-0 strata fix suture. The subcutaneous tissue was closed with 3-0 Vicryl. The subcuticular tissue was closed with 3-0 strata fix suture. The skin was then closed with Exofin skin glue. After the glue and dried, and Optifoam silver impregnated dressing was applied. The patient was then transferred to the recovery room in stable condition. The rehabilitation assistant INESSA Rodriguez was required due to the complexity of surgery, and the need for skilled neurosurgical nurse for positioning, draping, exposure, retraction, and closure of the wound.
--- NOTE | 2021-09-29 13:50 | XR ---
Limited right hip HISTORY: Status post right hip arthroplasty Single frontal view of the right hip Patient is status post right hip arthroplasty. There is anatomic alignment. Lucencies present within the soft tissues. Bone mineralization is reduced. IMPRESSION: Orthopedic follow-up.
--- NOTE | 2021-09-29 13:51 | FL ---
Fluoroscopy HISTORY: Hip replacement 42 seconds fluoroscopy time supplied to the referring clinician. 4 intraoperative C-arm images docum ent the procedure. See dictated report from orthopedic surgery.
[2021-09-29 15:40] VITALS: RESP 16
[2021-09-29] MEDS: SODIUM CHLORIDE 0.9% 1,000 ML IV SCH ×2 (16:03)
[2021-09-29] MEDS: ASPIRIN 325 MG TAB PO SCH (20:55)
[2021-09-29] MEDS ORDERED: SENNOSIDES-DOCUSATE SODIUM 1 EACH TAB PO SCH (21:00)
[2021-09-29] MEDS ORDERED: MELATONIN 5 MG TABLET PO SCH (21:00)
[2021-09-29 21:25] LABS: Glucose,Whole Blood 121 mg/dL (75-99)
[2021-09-30] MEDS: SODIUM CHLORIDE 0.9% 1,000 ML IV SCH (05:08)
--- NOTE | 2021-09-30 07:41 | P.DS ---
Providers Expected date of discharge: 09/30/21 Attending physician: Shankar Palacio Consults: 09/29/21 10:45 Consult Physician Routine Consulting Provider: Leonie Bryant Consult Reason/Comments: medical management Do you want consulting provider notified?: Yes Primary care physician: Leonie Bryant - Discharge Diagnosis(es) (1) Primary localized osteoarthritis of right hip Current Visit: Yes Status: Acute (2) Status post total replacement of right hip Current Visit: Yes Status: Acute Hospital Course: This is a 75-year-old female with known history of degenerative arthritis of the right hip. The patient presents for evaluation. After discussion and cons ideration patient elects to proceed with total hip arthroplasty with direct anterior approach. The patient is seen preoperatively by her primary care physician and cleared for surgery. Patient is admitted to [facility] on 09/29/2021 for total hip arthroplasty with direct anterior approach. The procedure is performed without complication or sequelae. The patient is doing well postoperatively. Labs and vital signs are stable on day of discharge. On day of discharge patient's hip incision is healing well. There is minimal erythema. There is no drainage noted at this time. There is minimal soft tissue swelling to the hip and thigh. Patient has full foot and ankle motion without difficulty or pain. Neurovascular status to the right lower extremity is intact. Patient is discharged to home in good condition. Please see med rec for accurate list of home medications. Patient Condition at Discharge: Good Plan - Discharge Summary Discharge Rx Participant: No New Discharge Prescriptions: New Aspirin 325 mg PO BID #60 tab Sennosides [Senokot] 2 tab PO DAILY PRN #60 tablet PRN Reason: Constipation Ondansetron Odt [Zofran Odt] 1 tab PO Q8HR PRN #10 tab PRN Reason: Nausea HYDROcodone/APAP 7.5-325MG [[place] 7.5-325] 1 - 2 tab PO Q6H PRN #32 tab PRN Reason: Pain No Action Melatonin 5 - 10 mg PO HS Acetaminophen [Tylenol] 500 mg PO Q4-6H PRN PRN Reason: Pain Multivitamin [Multivitamins Adult Gummies] 1 each PO DAILY Discharge Medication List Melatonin 5 - 10 mg PO HS 04/08/21 [History] Acetaminophen [Tylenol] 500 mg PO Q4-6H PRN 09/25/21 [History] Multivitamin [Multivitamins Adult Gummies] 1 each PO DAILY 09/25/21 [History] Aspirin 325 mg PO BID #60 tab 09/29/21 [Rx] HYDROcodone/APAP 7.5-325MG [[place] 7.5-325] 1 - 2 tab PO Q6H PRN #32 tab 09/29/21 [Rx] Ondansetron Odt [Zofran Odt] 1 tab PO Q8HR PRN #10 tab 09/29/21 [Rx] Sennosides [Senokot] 2 tab PO DAILY PRN #60 tablet 09/29/21 [Rx] Follow up Appointment(s)/Referral(s): Shankar Palacio DO [Doctor of Osteopathic Medicine] - 2 Weeks Activity/Diet/Wound Care/Special Instructions: 50% weightbearing as tolerated with walker. Leave dressing intact. Dressing may be removed by home care nurse or by patient in 7 days. Then change dressing twice daily until follow up. May shower with initial dressing intact and after removal. If dressing become saturated, please remove. Please take aspirin 325mg twice daily for 30 days to prevent blood clots. Recommend use of compression stockings daily until follow up to help prevent swelling and blood clots. May remove at night before sleeping. Please follow-up with [facility] in 2 weeks and call with any questions or concerns, . Discharge Disposition: HOME WITH HOME HEALTH SERVICES
[2021-09-30] MEDS: ASPIRIN 325 MG TAB PO SCH (08:35)
[2021-09-30 08:38] VITALS: BP 100/54; PULSE 76; TEMP 98
[2021-09-30] MEDS ORDERED: MULTIVITAMINS, THERA 1 EACH TAB PO SCH (09:00)
[2021-09-30 09:49] LABS: Basophils # (A) 0.01 X 10*3/uL (0.00-0.10); Basophils % (A) 0.1 %; Eosinophils # (A) 0 X 10*3/uL (0.04-0.35); Eosinophils % (A) 0 %; HCT 26.7 % (37.2-46.3); HGB 8.5 g/dL (12.0-15.0); Lymphocytes # (A) 0.86 X 10*3/uL (0.90-5.00); Lymphocytes % (A) 9.7 %; MCH 30.9 pg (27.0-32.0); MCHC 31.8 g/dL (32.0-37.0); MCV 97.1 fL (80.0-97.0); Mean Platelet Volume 9.8 fL (9.5-12.2); Monocytes % (A) 12.4 %; Neutrophils # (A) 6.85 X 10*3/uL (1.80-7.70); Neutrophils % (A) 77.6 %; Platelet Count 205 X 10*3/uL (140-440); RBC 2.75 X 10*6/uL (4.10-5.20); WBC 8.84 X 10*3/uL (4.50-10.00)
--- NOTE | 2021-09-30 14:12 | P.CONS ---
History of Present Illness - Reason for Consult Consult date: 09/30/21 Medical management - History of Present Illness HISTORY OF PRESENT ILLNESS This is a 75-year-old female patient of Dr. Bryant with past medical history of lumbar spondylosis, scoliosis, osteoarthritis. Patient is been brought into the hospital under the care of Dr. Palacio status post removal of hardware and right total hip arthroplasty on 09/29/2021. Patient has had no postop complications. Pain is controlled, she is working with physical therapy today. She is reaching 1500 on insulin spirometry. Medication reconciliation reviewed as patient is expected to go home today. REVIEW OF SYSTEMS Constitutional: No fever, no chills, no night sweats. No weight change. No weakness, fatigue or lethargy. No daytime sleepiness. EENT: No headache. No blurred vision or double vision, no loss of vision. No loss of Hearing, no ringing in the ears, no dizziness. No nasal drainage or congestion. No epistaxis. No sore throat. Lungs: No shortness of breath, cough, no sputum production. No wheezing. Cardiovascular: No chest pain, no lower extremity edema. No palpitations. No paroxysmal nocturnal dyspnea. No orthopnea. No lightheadedness or dizziness. No syncopal episodes. Abdominal: No abdominal pain. No nausea, vomiting. No diarrhea. No constipation. No bloody or tarry stools. No loss of appetite. Genitourinary: No dysuria, increased frequency, urgency. No urinary retention. Musculoskeletal: No myalgias. No muscle weakness, no gait dysfunction, no frequent falls. No back pain. No neck pain. Integumentary: No wounds, no lesions. No rash or pruritus. No unusual bruising. No change in hair or nails. Neurologic: No aphasia. No facial droop. No change in mentation. No head injury. No headache. No paralysis. No paresthesia. Psychiatric: No depression. No anxiety. No mood swings. Endocrine: No abnormal blood sugars. No weight change. No excessive sweating or thirst. No cold intolerance. MEDICAL HISTORY Lumbar spondylosis Scoliosis Osteoarthritis SURGICAL HISTORY Right knee replacement 10/2019 Facelift Right hip percutaneous pinning for right hip fracture 02/2019 Right total hip arthroplasty 09/2021 SOCIAL HISTORY Patient is a nonsmoker, no alcohol use, no marijuana or illicit drug use. FAMILY HISTORY Father at age 89 from Alzheimer's dementia. Mother at age 91 due to natural causes. Patient has 1 brother that at age 82 from spinal cancer with metastatic disease. Patient has 2 sons with no major medical problems.. PHYSICAL EXAMINATION Gen: This is a 75-year-old female. Patient is resting a recliner and appears to be comfortable and in no acute distress HEENT: Head is atraumatic, normocephalic. Pupils equal, round. Sclerae is anicte lavonne. NECK: Supple. No JVD. No lymphadenopathy. No thyromegaly. LUNGS: Clear to auscultation. No wheezes or rhonchi. No intercostal retractions. HEART: First heart sound is depressed, second heart sound is normal, no S3, no S4. Dressing in place to the right hip. ABDOMEN: Soft. Bowel sounds are present. No masses. No tenderness. EXTREMITIES: No pedal edema. No calf tenderness. NEUROLOGICAL: Patient is awake, alert and oriented x3. Cranial nerves 2 through 12 are grossly intact. ASSESSMENT AND PLAN 1. Osteoarthritis status post removal of hardware and right total hip arthroplasty anterior approach on 09/29/2021. Continue current pain management per orthopedics, incentive spirometry to reduce incidence of atelectasis and hospital-acquired pneumonia, therapies. 2. Lumbar spondylosis, stable. 3. Scoliosis, stable. DISCHARGE PLAN Home with [facility]. Impression and plan of care have been directed as dictated by the signing physician. Rossy Crum nurse practitioner acting as scribe for signing physician. Past Medical History Past Medical History: Hyperlipidemia, Osteoarthritis (OA) Additional Past Medical History / Comment(s): Arthritis in fingers, diverticulosis, benign colon polyp. History of Any Multi-Drug Resistant Organisms: None Reported Past Surgical History: Breast Surgery, Joint Replacement, Orthopedic Surgery Additional Past Surgical History / Comment(s): BREAST REDUCTION, "FACE LIFT", bilateral cataract removals with lens implants, ACL repair L leg, colonoscopy with benign polypectomy, ORIF rt hip, RT TKA Past Anesthesia/Blood Transfusion Reactions: Postoperative Nausea & Vomiting (PONV) Additional Past Anesthesia/Blood Transfusion Reaction / Comm: no problems with prior blood transfusion Smoking Status: Never smoker - Past Family History Mother Family Medical History: No Reported History Additional Family Medical History / Comment(s): Osteoporosis. Father Family Medical History: No Reported History Additional Family Medical History / Comment(s): Father was healthy. Medications and Allergies Home Medications Medication Instructions Recorded Confirmed Type Melatonin 5 - 10 mg PO HS 04/08/21 09/25/21 History Acetaminophen [Tylenol] 500 mg PO Q4-6H PRN 09/25/21 09/25/21 History Multivitamin [Multivitamins Adult 1 each PO DAILY 09/25/21 09/25/21 History Gummies] Aspirin 325 mg PO BID #60 tab 09/29/21 Rx HYDROcodone/APAP 7.5-325MG [[place] 1 - 2 tab PO Q6H PRN #32 tab 09/29/21 Rx 7.5-325] Ondansetron Odt [Zofran Odt] 1 tab PO Q8HR PRN #10 tab 09/29/21 Rx Sennosides [Senokot] 2 tab PO DAILY PRN #60 tablet 09/29/21 Rx Allergies Allergy/AdvReac Type Severity Reaction Status Date / Time codeine AdvReac Nausea & Verified 09/25/21 15:31 Vomiting Physical Exam Vitals: Vital Signs Temp Pulse Pulse Resp BP BP BP 09/30/21 07:10 85 16 09/30/21 02:00 98.1 F 85 96/58 09/29/21 20:00 81 16 09/29/21 19:46 98.1 F 81 16 94/53 09/29/21 15:30 78 16 105/50 09/29/21 15:00 86 15 107/50 09/29/21 14:30 87 16 94/50 09/29/21 14:00 85 16 102/50 09/29/21 13:45 86 17 88/51 09/29/21 13:30 87 16 101/56 09/29/21 13:15 86 16 111/50 09/29/21 12:58 88 16 129/52 09/29/21 12:43 94 12 97/50 09/29/21 10:17 97.5 F L 74 16 128/61 Pulse Ox 09/30/21 07:10 09/30/21 02:00 97 09/29/21 20:00 09/29/21 19:46 94 L 09/29/21 15:30 99 09/29/21 15:00 98 09/29/21 14:30 99 09/29/21 14:00 100 09/29/21 13:45 100 09/29/21 13:30 100 09/29/21 13:15 100 09/29/21 12:58 100 09/29/21 12:43 100 09/29/21 10:17 96 Intake and Output 09/29/21 09/30/21 09/30/21 22:59 06:59 14:59 Intake Total 450 Balance 450 Intake: IV 450 Other: Voiding Method Toilet Toilet # Voids 1 3 3 # Bowel Movements 0 Weight 44.8 kg Results CBC & Chem 7: 09/30/21 05:56 Labs: Abnormal Lab Results - Last 24 Hours (Table) 09/29/21 Range/Units 21:10 POC Glucose (mg/dL) 121 H (75-99) mg/dL
== END 2021-09-30 11:55 | disposition home health service (06) ==
LOC: OR 09:52 → 4SSUR 12:41 → OR 09-30 11:55
PROVIDERS: ATTEND Orthopaedic Surgery
DX: M16.11 Unilateral primary osteoarthritis, right hip (principal); E78.5 Hyperlipidemia, unspecified; M41.9 Scoliosis, unspecified; Z20.822 Contact with and (suspected) exposure to COVID-19; M47.816 Spondylosis without myelopathy or radiculopathy, lumbar region; Z97.3 Presence of spectacles and contact lenses; Z96.641 Presence of right artificial hip joint; Z96.651 Presence of right artificial knee joint; Z81.8 Family history of other mental and behavioral disorders; Z80.8 Family history of malignant neoplasm of other organs or systems; Z86.010 Personal history of colon polyps; Z98.42 Cataract extraction status, left eye; Z98.41 Cataract extraction status, right eye; Z98.890 Other specified postprocedural states; Z82.62 Family history of osteoporosis; Z79.82 Long term (current) use of aspirin; Z79.899 Other long term (current) drug therapy; Z88.5 Allergy status to narcotic agent
CPT/HCPCS: 97161; 97165; 86891; 86900; 86901; 85025; 86850; 88300; 87635; 73501; 36415; 27130; C1776; J2250; J1644; J1100; J0690 ×3; J2405; J2704

== ENCOUNTER → 2022-10-14 | Outpatient (CLI) | payer MEDICARE ==
--- NOTE | 2022-10-14 11:43 | CT ---
EXAMINATION TYPE: CT brain wo con DATE OF EXAM: 10/14/2022 COMPARISON: None HISTORY: Memory loss CT DLP: [address] of the brain was performed. The ventricles, basal cisterns and sulci overlying the cerebral convexities demonstrate mild enlargem ent. There is no evidence for intracranial hemorrhage or sulcal effacement. There is decreased attenuation about the periventricular white matter and deep white matter of both c erebral hemispheres, compatible with chronic small vessel ischemia. Differential diagnosis does inclu de demyelination. No mass effects are seen.No midline shift. Osseous calvarium is intact. If symptoms persist consider MRI. IMPRESSION: 1. Age related atrophic and chronic small vessel ischemic change without acute intracranial process s een at this time.
== END | disposition home or self-care (01) ==
LOC: RADCTMAIN 11:13
PROVIDERS: ATTEND Internal Medicine
DX: I67.82 Cerebral ischemia (principal); G31.9 Degenerative disease of nervous system, unspecified
CPT/HCPCS: 70450

== ENCOUNTER → 2022-11-04 | Outpatient (CLI) | payer MEDICARE ==
--- NOTE | 2022-11-04 18:34 | BD ---
EXAMINATION TYPE: Axial Bone Density DATE OF EXAM: 11/04/2022 COMPARISON: 09.07.2010 CLINICAL HISTORY: 76 years year old Female. ICD-10 CODE: M85.851 OSTEOPENIA RT HIP Height: 57.5 Weight: 104 FRAX RISK QUESTIONS: Family History (Parent hip fracture): YES History of Fracture in Adulthood: YES RISK FACTORS HISTORY OF: Hip Fracture RT HIP...WITH REPLACEMENT FOLLOWING...2018 AND 2020 Surgery to RT HIP....REPLACEMENT Family History of Osteoporosis: YES, MOTHER WITH HIP FX AND REPLACEMENT Postmenopausal woman: YES, AT ABOUT 48 YRS OLD Lost more than 2 inches in height since high school: YES Frequent falls: UNSTEADY, ELDERLY Hyperparathyroidism: NO Adrenal Insufficiency: NO MEDICATIONS: Additional Medications: VIT D AND CALCIUM Additional History: RT HIP and RT KNEE REPLACEMENTS, OSTEOARTHRITIS EXAM MEASUREMENTS: Bone mineral densitometry was performed using the [employer] System. Bone mineral density as measured about the Lumbar spine is: ----- L1-L4(G/cm2): 0.952 T Score Values are as follows: ----- L1: -0.6 ----- L2: -2.0 ----- L3: -2.1 ----- L4: -3.2 ----- L1-L4: -1.9 Bone mineral density has: Decreased -12.5% since study of: 09.07.2010 Bone mineral density about the L hip (g/cm2): 0.634 T Score values are as follows: -----L Neck: -3.4 -----L Total: -3.0 Bone mineral density has: Decreased -23.4% since study of: 09.07.2010 FRAX%s: The graph provided illustrates a 62.2% chance for a major osteoporotic fx and a 51.6% chance for the hips probability for fx in 10 years time. IMPRESSION: Osteoporosis (T Score less than -2.5). There is increased fracture risk and therapy is usually indicated based on age. Re-Screen 1-2 years. NOTE: T-SCORE=SD OF THE YOUNG ADULT MEAN.
--- NOTE | 2022-11-05 07:07 | MM ---
Reason for Exam: Screening (asymptomatic). Last mammogram was performed 1 year(s) and 9 month(s) ago. Patient History: Menarche at age 10. First Full-Term at age 18. Postmenopausal. Estrogen for 5 years from age 43 until age 48. 01/16/2008, Bilateral Reduction. 12/02/2008, Benign Core Biopsy on the left side. 02/13/2007, Benign Core Biopsy on the left side. Paternal aunt had breast cancer, age 90. Risk Values: Marine 5 year model risk: 2.3%. NCI Lifetime model risk: 4.1%. Prior Study Comparison: 09/09/2017 Bilateral Screening Mammogram, [facility] 12/17/2019 Bilateral Screening Mammogram, [facility]. 02/10/2021 Bilateral Screening Mammogram, [facility]. Tissue Density: There are scattered fibroglandular densities. Findings: Analyzed By CAD. Mammotome biopsy clip in the left breast is redemonstrated. Stable round circumscribed peripheral possible dermal-based 5 mm lesion in the medial left breast. There is no suspicious group of microcalcifications or new suspicious mass in either breast. Overall Assessment: Benign, BI-RAD 2 Management: Screening Mammogram of both breasts in 1 year. A clinical breast exam by your physician is recommended on an annual basis and results should be correlated with mammographic findings. Electronically signed and approved by: Aguila Morrissey M.D.
== END | disposition home or self-care (01) ==
LOC: RADMAMWWP 09:35
PROVIDERS: ATTEND Internal Medicine
DX: Z12.31 Encounter for screening mammogram for malignant neoplasm of breast (principal); M81.0 Age-related osteoporosis without current pathological fracture; M85.851 Other specified disorders of bone density and structure, right thigh
CPT/HCPCS: 77063; 77067; 77080

== ENCOUNTER → 2023-07-05 | Outpatient (CLI) | payer MEDICARE ==
[~2023-07-05] MED LIST changes: -ACETAMINOPHEN TAB 500 MG TAB PO PRN; +DENOSUMAB 60 MG/ML 1 ML SYRINGE SQ ONE; -DEXAMETHASONE SOD PHOSPHATE 4 MG/ML 1 ML VIAL IV ONE; -GABAPENTIN 300 MG CAP PO PRN; -HYDROmorphone 0.5 MG/0.5 ML SYRINGE IVP PRN; -LACTATED RINGERS 1,000 ML IV SCH; -LIDOCAINE 1% (10MG/ML) FOR IV START INTRADERMA PRN; -MELOXICAM 7.5 MG TAB PO PRN; -MIDAZOLAM 2 MG/2 ML VIAL IV PRN; -ONDANSETRON 4 MG/2 ML VIAL IVP ONE; -TRANEXAMIC ACID 1,000 MG in SODIUM CHLORIDE 0.9% 100 ML IVPB PRN
[2023-07-05 14:32] VITALS: BP 99/62; PULSE 77; RESP 16; TEMP 97.6
== END ==
LOC: PROCWHC3 14:23
PROVIDERS: ATTEND Internal Medicine
DX: M81.0 Age-related osteoporosis without current pathological fracture (principal)
CPT/HCPCS: 96372; J0897

== ENCOUNTER → 2024-06-07 | Outpatient (CLI) | payer MEDICARE ==
[2024-06-07 16:09] LABS: Basophils % (A) 1 %; Eosinophils # (A) 0.3 k/uL (0-0.7); Eosinophils % (A) 4 %; HCT 42.7 % (34.0-46.0); HGB 13.4 gm/dL (11.4-16.0); Hypochromasia Slight; Lymphocytes # (A) 1.7 k/uL (1.0-4.8); Lymphocytes % (A) 26 %; MCH 30.3 pg (25.0-35.0); MCHC 31.5 g/dL (31.0-37.0); MCV 96.1 fL (80.0-100.0); Mean Platelet Volume 7.1; Monocytes # (A) 0.5 k/uL (0-1.0); Monocytes % (A) 8 %; Neutrophils # (A) 3.9 k/uL (1.3-7.7); Neutrophils % (A) 60 %; Platelet Count 279 k/uL (150-450); RBC 4.44 m/uL (3.80-5.40); RDW 13.9 % (11.5-15.5); WBC 6.6 k/uL (3.8-10.6)
[2024-06-07 16:43] LABS: ALT 13 U/L (4-34); AST 28 U/L (14-36); African American GFR (CKD) >90 (>60 ml/min/1.73 sqM); Albumin 3.9 g/dL (3.5-5.0); Albumin/Globulin Ratio 1.3; Alkaline Phosphatase 89 U/L (38-126); Anion Gap 6 mmol/L; Blood Urea Nitrogen 13 mg/dL (7-17); Calcium 9.3 mg/dL (8.4-10.2); Carbon Dioxide 24 mmol/L (22-30); Chloride 107 mmol/L (98-107); Globulin 3.1 g/dL; Glucose 83 mg/dL (74-99); Non-African American GFR(CKD) 83 (>60 ml/min/1.73 sqM); Sodium 137 mmol/L (137-145)
--- NOTE | 2024-06-07 17:38 | CT ---
EXAMINATION TYPE: CT abdomen pelvis w con DATE OF EXAM: 06/07/2024 COMPARISON: None HISTORY: infection at incision site of recent abdominal sx CT DLP: 638 mGycm CONTRAST: CT scan of the abdomen and pelvis is performed with Oral Contrast and with IV Contrast, patient injec yamile with 100 mL of Isovue 300. FINDINGS: LUNG BASES-: No visible nodule. No infiltrate. Moderate fixed hiatal hernia. LIVER/GB: No calcified gallstones. No space occupying hepatic lesion. Biliary tree is of normal ca liber. PANCREAS: No inflammation. No distinct mass. SPLEEN: No splenic enlargement. No lesion seen. ADRENALS: No nodule. No thickening. KIDNEYS/BLADDER: No hydronephrosis. No nephrolithiasis. No distinct renal mass. Urinary bladder g rossly unremarkable. BOWEL: Normal appendix. Normal bowel caliber. No inflammation. GENITAL ORGANS: No gross abnormality. LYMPH NODES: No greater than 1cm abdominal or pelvic lymph nodes are appreciated. AORTA: No significant abnormality. OSSEOUS STRUCTURES: Right hip prosthesis with streak limiting artifact. Scattered degenerative change s of the lumbar spine. OTHER: Midline and left paramedian fluid collection extends for 10 cm craniocaudal just above the lev el of the umbilicus to below the umbilicus. Maximal AP dimension is 1 cm maximal transverse dimension of 1.4 cm. Consider seroma versus infected collection. IMPRESSION: 1. Midline and left paramedian fluid collection extends for 10 cm craniocaudal just above the level o f the umbilicus to below the umbilicus. Maximal AP dimension is 1 cm maximal transverse dimension of 1.4 cm. Consider seroma versus infected collection. 2. Moderate fixed hiatal hernia.
[2024-06-08 03:43] LABS: Erythrocyte Sedimentation Rate 16 mm/Hr (0-30)
== END | disposition home or self-care (01) ==
LOC: RADCTMAIN 15:20
PROVIDERS: ATTEND Internal Medicine
DX: T81.49XA Infection following a procedure, other surgical site, initial encounter (principal); K44.9 Diaphragmatic hernia without obstruction or gangrene
CPT/HCPCS: 80053; 85652; 85025; 74177; 36415; Q9967

== ENCOUNTER → 2024-11-19 | Outpatient (CLI) | payer MEDICARE ==
[2024-11-19 16:35] LABS: African American GFR (CKD) 83 (>60 ml/min/1.73 sqM); Blood Urea Nitrogen 20 mg/dL (7-17); Non-African American GFR(CKD) 72 (>60 ml/min/1.73 sqM)
--- NOTE | 2024-11-19 17:38 | CT ---
EXAMINATION TYPE: CT brain wo/w con DATE OF EXAM: 11/19/2024 COMPARISON: CT brain October 14, 2022 HISTORY: confusion, memory loss CT DLP: 2059.8 mGycm. Automated Exposure Control for Dose Reduction was Utilized. TECHNIQUE: CT scan of the head is performed without and with IV Contrast, patient injected with 100 mL of Isovue 300. FINDINGS: Noncontrast images show no acute intracranial hemorrhage or midline shift. Mild to modera te ventricular and sulcal prominence is redemonstrated. Mild to moderate low attenuation of periventr icular white matter is again seen. Postcontrast images show no suspicious enhancing intraparenchymal mass. Bilateral aphakia redemonstrated. The visualized sinuses are clear. IMPRESSION: [id number] diffuse cerebral atrophy and chronic small vessel ischemic change redemo nstrated. No suspicious enhancing mass noted. [facility], , 11/19/2024 5:35 PM
--- NOTE | 2024-11-20 08:38 | US ---
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 Indirect Doppler criteria was utilized. FINDINGS: EXAM MEASUREMENTS: RIGHT: Peak Systolic Velocity (PSV) cm/sec ----- Right CCA: 95.0 ----- Right ICA: 64.0 ----- Right ECA: 65.3 ICA/CCA ratio: 0.67 RIGHT: End Diastole cm/sec ----- Right CCA: 17.8 ----- Right ICA: 17.7 ----- Right ECA: 5.69 LEFT: Peak Systolic Velocity (PSV) cm/sec ----- Left CCA: 68.4 ----- Left ICA: 79.7 ----- Left ECA: 78.5 ICA/CCA ratio: 1.17 LEFT: End Diastole cm/sec ----- Left CCA: 9.65 ----- Left ICA: 20.6 ----- Left ECA: 11.8 VERTEBRALS (direction of flow): Right Vertebral: Antegrade Left Vertebral: Antegrade Rhythm: Normal SALESPERSON BURIAL NEEDS NOTES: No stenosis or significant velocity elevations. No plaque. Color Doppler imaging shows patency with blood flow throughout the carotid artery. Spectral waveforms are within normal limits. IMPRESSION: No hemodynamically significant internal carotid artery stenosis on either side. Criteria for Assigning % of Stenosis / Diameter reduction (Estimation based on the indirect measurements of the internal carotid artery velocities (ICA PSV). 1. Normal (no stenosis)=ICA PSV < 125 cm/s: ratio < 2.0: ICA EDV<40 cm/s. 2. Less than 50% stenosis=ICA PSV < 125 cm/s: ratio < 2.0: ICA EDV<40 cm/s. 3. 50 to 69% stenosis=ICA PSV of 125 to 230 cm/s: ration 2.0 ? 4.0: ICA EDV 40-100 cm/s. 4. Greater than 70% stenosis to near occlusion= ICA PSV > 230 cm/s: ratio > 4.0: ICA EDV > 100 cm/s. 5. Near occlusion= ICA PSV velocities may be low or undetectable: variable ratio and ICA EDV. 6. Total occlusion=unable to detect flow. [facility], , 11/20/2024 8:36 AM
--- NOTE | 2024-11-20 12:06 | CA ---
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 LV Systolic Volume MOD 4C 19.3 cm??? LV Ejection Fraction MOD 4C 59.7 % LV Cardiac Index MOD 4C 1212.5 cm???/min???m??? LV Diastolic Length 4C 6.4 cm LV Systolic Length 4C 5.0 cm LV Diastolic Volume MOD 2C 43.5 cm??? LV Systolic Volume MOD 2C 16.3 cm??? LV Ejection Fraction MOD 2C 62.6 % LV Cardiac Index MOD 2C 1158.7 cm???/min???m??? LV Diastolic Length 2C 6.7 cm LV Systolic Length 2C 4.9 cm LA Volume 35.2 cm??? 18 - 58 / 22 - 52 cm??? LA Volume Index 24.2 cm???/m??? 16 - 28 cm???/m??? M-MODE Aortic Root Diameter MM 2.8 cm DOPPLER AV Peak Velocity 182.6 cm/s AV Peak Gradient 13.3 mmHg AI Peak Velocity 312.6 cm/s AI Peak Gradient 39.1 mmHg AI Pressure Half Time 615.8 ms MV Area PHT 3.2 cm??? Mitral E Point Velocity 78.3 cm/s Mitral A Point Velocity 90.7 cm/s Mitral E to A Ratio 0.9 MV Deceleration Time 237.0 ms TR Peak Velocity 239.4 cm/s TR Peak Gradient 22.9 mmHg Right Ventricular Systolic Press 27.9 mmHg FINDINGS Left Ventricle Left ventricular ejection fraction is estimated at 55-60 %. Small left ventricular cavity. Left ventricular wall thickness normal. Normal left ventricular wall motion. Right Ventricle Normal right ventricular size. Right ventricular systolic pressure within normal limits. Right Atrium Normal right atrial size. No right atrial thrombus or mass seen. Left Atrium Normal left atrial size. No left atrial thrombus or mass present. Mitral Valve Structurally normal mitral valve. Trace mitral regurgitation. Aortic Valve Trileaflet aortic valve. Thickened aortic valve without stenosis. Mild aortic regurgitation. Tricuspid Valve Structurally normal tricuspid valve. Trace tricuspid regurgitation. Pulmonic Valve Structurally normal pulmonic valve. Trace to mild pulmonic regurgitation. Pericardium No pericardial or pleural effusion. Aorta Normal size aortic root and proximal ascending aorta. CONCLUSIONS LVEF 55 to 60% No significant regional wall motion normality Normal RV size and systolic function Mild aortic regurgitation RVSP 28 mmHg Previewed by: Dr Mckay Gonzalez (Electronically Signed) Final Date: 20 November 2024 12:05
== END | disposition home or self-care (01) ==
LOC: RADUSWWP 14:48
PROVIDERS: ATTEND Internal Medicine
DX: I66.23 Occlusion and stenosis of bilateral posterior cerebral arteries (principal); I34.0 Nonrheumatic mitral (valve) insufficiency; R41.3 Other amnesia; I67.82 Cerebral ischemia; G31.9 Degenerative disease of nervous system, unspecified
CPT/HCPCS: 93306; 82565; 84520; 93880; 70470; 36415; Q9967